=== PATIENT | female | born 1935 | race Caucasian/White ===

== ENCOUNTER 2020-09-24 22:22 | Observation (INO) | payer MEDICARE ==
[~2020-09-24] VITALS: Ht 167.6 cm; Wt 98.0 kg
--- NOTE | 2020-09-24 22:38 | PHYS DOC ---
Past Medical History Past Medical History: A-Fib, Diabetes-Type II, High Cholesterol, Hypertension Past Surgical History: No Surgical History Smoking Status: Never Smoker Alcohol Use: None Drug Use: None General Adult EDM: Problems: (1) Fall (on) (from) other stairs and steps, initial encounter HPI: HPI: 85-year-old female with a history of diabetes, blood thinner use (Eliquis 5 mg), hypertension, hyperlipidemia presents to the emergency room complaining of left shoulder pain after she fell while reaching for remote. She reports falling directly on the left shoulder, she is unsure whether she hit her head or not. She is also unsure if she had loss of consciousness or not. She was given fentanyl 100 mcg in route which she says is helping her pain right now. She denies any further arm pain besides shoulder pain, or any other pain elsewhere in her body. She denies chest pain, abdominal pain, pelvis pain, head pain, neck pain, back pain, vomiting, diarrhea, recent illness, Covid contact. Review of Systems: Review of Systems: Constitutional: Denies fever or chills. Eyes: Denies change in vision, pain. HENT: Denies congestion or sore throat. Respiratory: Denies cough or shortness of breath. Cardiovascular: Denies chest pain or edema. GI: Denies abdominal pain, nausea. : Denies change in urination, dysuria. Musculoskeletal: Denies the left shoulder pain, admits to trauma. Skin: Denies rash, skin change. Neurologic: Denies headache, focal weakness. Psychiatric: Denies depression or anxiety. All other systems reviewed as negative except for what was mentioned in the HPI. Heart Score: C/O Chest Pain: No Family History: Family History: Noncontributory Current Medications: My Orders - ASIM REED DO Procedure Category Date Status Time Shoulder 2+V Left RAD 09/24/20 Logged 22:30 [address] 09/24/20 Logged Spine Wo 22:30 Chest Ap Only RAD 09/24/20 Logged 22:30 Vital Signs Monitoring ER 09/24/20 Transmitted 22:30 Cbc W [employer] LAB 09/24/20 Logged 22:30 Basic Metabolic Panel LAB 09/24/20 Logged 22:30 Comprehensive LAB 09/24/20 Logged Metabolic Panel 22:30 Protime With Inr LAB 09/24/20 Logged 22:30 Partial LAB 09/24/20 Logged Thromboplastin Time 22:30 Ua W Microscopic LAB 09/24/20 Logged 22:30 Pelvis RAD 09/24/20 Logged 22:30 12 Lead Ekg EKG 09/24/20 Logged 22:30 End Tidal Co2 [facility] 09/24/20 In Process Monitoring 22:30 Type And Screen BBK 09/24/20 Logged 22:30 Vital Signs [facility] 09/24/20 In Process 22:30 Lactic Acid With LAB 09/24/20 Logged Reflex 22:30 Pulse Oximetry: [facility] 09/24/20 In Process Standing Order 22:30 [facility] 09/24/20 Logged 22:30 Allergies: Allergies: Allergies Coded Allergies Type Severity Reaction Last Updated Verified No Known Drug Allergies 09/24/20 No Physical Exam: PE: Constitutional: Moderate distress secondary to pain, nontoxic appearance. HENT: Head and scalp appear atraumatic, bilateral external ears normal, nose normal. Midface stable without tenderness Eyes: PERRLA, EOMI, conjunctiva normal, no discharge. Neck: Supple, no stridor. No C spinal tenderness Cardiovascular: Heart rate regular rhythm. 2+ radial pulses Lungs & Thorax: No respiratory distress, symmetrical expansion. Bilateral breath sounds clear to auscultation Abdomen: Soft, no tenderness Skin: Warm, dry. No open wound Extremities: Left shoulder deformity is noted, arm in a sling, there is no forearm tenderness there is no arm tenderness Neurologic: Alert and oriented X 3, normal motor function, normal sensory function, no focal deficits noted. GCS 15. Current Patient Data: Labs: Laboratory Tests Test 09/24/20 23:10 White Blood Count 15.8 x10^3/uL (4.0-11.0) Red Blood Count 4.93 x10^6/uL (3.50-5.40) Hemoglobin 13.7 g/dL (12.0-15.5) Hematocrit 41.2 % (36.0-47.0) Mean Corpuscular Volume 84 fL (79-100) Mean Corpuscular Hemoglobin 28 pg (25-35) Mean Corpuscular Hemoglobin Concent 33 g/dL (31-37) Red Cell Distribution Width 17.8 % (11.5-14.5) Platelet Count 258 x10^3/uL (140-400) Neutrophils (%) (Auto) 89 % (31-73) Lymphocytes (%) (Auto) 5 % (24-48) Monocytes (%) (Auto) 4 % (0-9) Eosinophils (%) (Auto) 1 % (0-3) Basophils (%) (Auto) 1 % (0-3) Neutrophils # (Auto) 14.1 x10^3/uL (1.8-7.7) Lymphocytes # (Auto) 0.8 x10^3/uL (1.0-4.8) Monocytes # (Auto) 0.6 x10^3/uL (0.0-1.1) Eosinophils # (Auto) 0.2 x10^3/uL (0.0-0.7) Basophils # (Auto) 0.1 x10^3/uL (0.0-0.2) Prothrombin Time 15.4 SEC (11.7-14.0) Prothromb Time International Ratio 1.2 (0.8-1.1) Activated Partial Thromboplast Time 34 SEC (24-38) Sodium Level 137 mmol/L (136-145) Potassium Level 4.8 mmol/L (3.5-5.1) Chloride Level 102 mmol/L (98-107) Carbon Dioxide Level 24 mmol/L (21-32) Anion Gap 11 (6-14) Blood Urea Nitrogen 32 mg/dL (7-20) Creatinine 1.6 mg/dL (0.6-1.0) Estimated GFR (Cockcroft-Gault) 30.5 BUN/Creatinine Ratio 20 (6-20) Glucose Level 189 mg/dL (70-99) Lactic Acid Level 2.5 mmol/L (0.4-2.0) Calcium Level 9.3 mg/dL (8.5-10.1) Total Bilirubin 0.3 mg/dL (0.2-1.0) Aspartate Amino Transf (AST/SGOT) 44 U/L (15-37) Alanine Aminotransferase (ALT/SGPT) 38 U/L (14-59) Alkaline Phosphatase 118 U/L (46-116) Troponin I Quantitative < 0.017 ng/mL (0.000-0.055) Total Protein 7.6 g/dL (6.4-8.2) Albumin 3.3 g/dL (3.4-5.0) Albumin/Globulin Ratio 0.8 (1.0-1.7) Vital Signs: Vital Signs Date Time Temp Pulse Resp B/P (MAP) Pulse Ox O2 Delivery O2 Flow Rate FiO2 09/25/20 01:27 22 94 Nasal Cannula 2.0 09/25/20 01:21 20 97 Nasal Cannula 2.0 09/25/20 00:16 28 99 Nasal Cannula 2.0 09/24/20 22:23 98.7 82 22 138/88 94 Nasal Cannula 3.0 98.7 EKG: EKG: Atrial fibrillation, no STEMI, low voltage Radiology/Procedures: Radiology/Procedures: STUDY: CT head and cervical spine without contrast INDICATION: Trauma. COMPARISON: None. TECHNIQUE: Axial CT imaging through the head and cervical spine without the use of intravenous contrast. Sagittal and coronal reformats were obtained. One or more of the following individualized dose reduction techniques were utilized for this examination: 1. Automated exposure control 2. Adjustment of the mA and/or kV according to patient size 3. Use of iterative reconstruction technique. FINDINGS: CT head: No acute intracranial hemorrhage. Cortical/subcortical hypoattenuation of the right occipital lobe favored a chronic infarct. No localized mass effect, midline shift or hydrocephalus. White matter findings most frequently on account of chronic microvascular ischemic change. Intracranial calcific atherosclerosis. No depressed calvarial fracture. Calvarial hyperostosis. Normally aerated paranasal sinuses and mastoid air cells. CT cervical spine: Degraded study on account of patient body habitus in conjunction with osteopenia. No displaced fracture or traumatic malalignment. Multilevel spondylosis to varying extent superimposed on exaggerated lordosis. Central canal stenosis appearing greatest at C3-C4 and C4-C5 estimated at no more than moderate. Osseous neural foraminal stenosis greatest on the right at C3-C4 and C4-C5. Degenerative changes at the craniocervical and atlantoaxial articulations. Soft tissue prominence dorsal to the dens with no more than mild stenosis. No paraspinous hematoma to indicate occult osseous injury. Prominent and somewhat heterogeneous thyroid lobe without a large nodule that would meet size criteria for dedicated follow-up. Scattered calcific atherosclerosis. No apical pneumothorax. IMPRESSION: CT head: 1. No acute intracranial abnormality by CT. Cortical/subcortical hypoattenuation involving the right occipital lobe is favored the sequela of a chronic infarct. If there is clinical concern for a recent ischemic event MRI would be more sensitive CT cervical spine: 1. Limited study due to patient body habitus and osteopenia. Taking this into consideration, no acute fracture. 2. Multilevel spondylosis greatest at C3-C4 and C4-C5. Electronically signed by: RALPH SHEPPARD MD (09/25/2020 12:14 AM) PROCEDURE: SHOULDER 2+V LEFT Exam Date: 09/24/2020 10:38 PM XR SHOULDER_LEFT 2+ VIEWS Indication: Reason: shoulder pain, deformity / Spl. Instructions: / History: . FINDINGS/ IMPRESSION: There is an acute minimally displaced fracture through the proximal humeral metaphysis without significant appreciable angulation. Moderate degenerative changes are noted. Left lung volume is low with suggestion of left basilar atelectasis and or infiltrates. Electronically signed by: Christopher Alaniz MD (09/25/2020 12:51 AM) PROCEDURE: PELVIS Exam Date: 09/24/2020 10:38 PM XR PELVIS 1-2V Indication: Reason: shoulder pain, deformity / Spl. Instructions: / History: . FINDINGS/ IMPRESSION: Bones are diffusely osteopenic which limits evaluation. Imaging technique further limits evaluation. Moderate degenerative changes are seen in the hips bilaterally. Degenerative changes are noted in the lower lumbar spine and SI joints and pubic symphysis. There is a small subcapital linear lucency along the medial aspect of the left femoral neck which could be secondary to an overhanging osteophyte, though a nondisplaced acute fracture cannot be excluded. If the patient has symptoms in the left hip, consider further evaluation with CT or MRI. Other visualized osseous structures appear intact. Electronically signed by: Christopher Alaniz MD (09/25/2020 12:54 AM) PROCEDURE: CHEST AP ONLY Exam Date: 09/24/2020 10:38 PM XR CHEST 1V Indication: Reason: shoulder pain, deformity / Spl. Instructions: / History: . FINDINGS/ IMPRESSION: The cardiac silhouette is enlarged with mild congestion. Prominent interstitial markings bilaterally are nonspecific. Left basilar atelectasis and or infiltrates are noted. No pleural effusion or pneumothorax. Left proximal humerus fracture is noted. Electronically signed by: Christopher Alaniz MD (09/25/2020 12:51 AM) Course & Med Decision Making: Course & Med Decision Making Patient with an acute left proximal humerus fracture, she was placed in a sling. Pain was reasonably controlled emergency department. Daughter who is at the bedside, will feel more comfortable patient with observation given that she use a walker at home and there is concerns about mobility with the sling and fracture. We will admit her for PT in the morning along with pain control. The patient and her mother were concerned about Eliquis use, as the last time the p atient fell her Eliquis was withheld and she had a stroke. At this time there is no further injury that was seen on exam and the patient's head CT is normal. We will resume her Eliquis here with the family in agreement with the plan. Dr Torres to admit Departure Departure Impression: Primary Impression: Left humeral fracture Additional Impression: Fall (on) (from) other stairs and steps, initial encounter Disposition: ADMITTED INPATIENT (Dr. Torres) Condition: STABLE ASIM REED DO Sep 24, 2020 22:38
[2020-09-24 23:40] LABS: BASO # 0.1 x10^3/uL (0.0-0.2); BASO % 1 % (0-3); EOS # 0.2 x10^3/uL (0.0-0.7); EOS % 1 % (0-3); HEMATOCRIT 41.2 % (36.0-47.0); HEMOGLOBIN 13.7 g/dL (12.0-15.5); LYMPH # 0.8 x10^3/uL (1.0-4.8); LYMPH % 5 % (24-48); MEAN CORPUSCULAR HEMOGLOBIN 28 pg (25-35); MEAN CORPUSCULAR HGB CONC 33 g/dL (31-37); MEAN CORPUSCULAR VOLUME 84 fL (79-100); MONO # 0.6 x10^3/uL (0.0-1.1); MONO % 4 % (0-9); NEUT # 14.1 x10^3/uL (1.8-7.7); NEUT % 89 % (31-73); PLATELET COUNT 258 x10^3/uL (140-400); RED BLOOD COUNT 4.93 x10^6/uL (3.50-5.40); RED CELL DISTRIBUTION WIDTH 17.8 % (11.5-14.5); WHITE BLOOD COUNT 15.8 x10^3/uL (4.0-11.0)
[2020-09-24 23:47] LABS: CALCIUM 9.3 mg/dL (8.5-10.1); CREATININE 1.6 mg/dL (0.6-1.0); GFR 30.5; POTASSIUM 4.8 mmol/L (3.5-5.1)
[2020-09-24 23:52] LABS: ALBUMIN 3.3 g/dL (3.4-5.0); ALBUMIN/GLOBULIN RATIO 0.8 (1.0-1.7); TOTAL BILIRUBIN 0.3 mg/dL (0.2-1.0); TOTAL PROTEIN 7.6 g/dL (6.4-8.2)
[2020-09-24 23:53] LABS: PROTHROMBIN TIME PATIENT 15.4 SEC (11.7-14.0)
[2020-09-25] MEDS ORDERED: MORPHINE SULFATE 4 MG/ML INJ. IVP ONE
--- NOTE | 2020-09-25 00:17 | RAD ---
STUDY: CT head and cervical spine without contrast INDICATION: Trauma. COMPARISON: None. TECHNIQUE: Axial CT imaging through the head and cervical spine without the use of intravenous contra st. Sagittal and coronal reformats were obtained. One or more of the following individualized dose reduction techniques were utilized for this examinat ion: 1. Automated exposure control 2. Adjustment of the mA and/or kV according to patient size 3. Use of iterative reconstruction technique. FINDINGS: CT head: No acute intracranial hemorrhage. Cortical/subcortical hypoattenuation of the right occipital lobe fa vored a chronic infarct. No localized mass effect, midline shift or hydrocephalus. White matter findings most frequently on account of chronic microvascular ischemic change. Intracrani al calcific atherosclerosis. No depressed calvarial fracture. Calvarial hyperostosis. Normally aerated paranasal sinuses and masto id air cells. CT cervical spine: Degraded study on account of patient body habitus in conjunction with osteopenia. No displaced fracture or traumatic malalignment. Multilevel spondylosis to varying extent superimpose d on exaggerated lordosis. Central canal stenosis appearing greatest at C3-C4 and C4-C5 estimated at no more than moderate. Osseous neural foraminal stenosis greatest on the right at C3-C4 and C4-C5. De generative changes at the craniocervical and atlantoaxial articulations. Soft tissue prominence dorsa l to the dens with no more than mild stenosis. No paraspinous hematoma to indicate occult osseous injury. Prominent and somewhat heterogeneous thyro id lobe without a large nodule that would meet size criteria for dedicated follow-up. Scattered calci fic atherosclerosis. No apical pneumothorax. IMPRESSION: CT head: 1. No acute intracranial abnormality by CT. Cortical/subcortical hypoattenuation involving the right occipital lobe is favored the sequela of a chronic infarct. If there is clinical concern for a recen t ischemic event MRI would be more sensitive CT cervical spine: 1. Limited study due to patient body habitus and osteopenia. Taking this into consideration, no acut e fracture. 2. Multilevel spondylosis greatest at C3-C4 and C4-C5. Electronically signed by: RALPH SHEPPARD MD (09/25/2020 12:14 AM) [facility]
--- NOTE | 2020-09-25 00:53 | RAD ---
Exam Date: 09/24/2020 10:38 PM XR CHEST 1V Indication: Reason: shoulder pain, deformity / Spl. Instructions: / History: . FINDINGS/ IMPRESSION: The cardiac silhouette is enlarged with mild congestion. Prominent interstitial markings bilaterally are nonspecific. Left basilar atelectasis and or infiltrates are noted. No pleural effusion or pne umothorax. Left proximal humerus fracture is noted. Electronically signed by: Christopher Alaniz MD (09/25/2020 12:51 AM) [facility]
--- NOTE | 2020-09-25 00:54 | RAD ---
Exam Date: 09/24/2020 10:38 PM XR SHOULDER_LEFT 2+ VIEWS Indication: Reason: shoulder pain, deformity / Spl. Instructions: / History: . FINDINGS/ IMPRESSION: There is an acute minimally displaced fracture through the proximal humeral metaphysis without signif icant appreciable angulation. Moderate degenerative changes are noted. Left lung volume is low with suggestion of left basilar atelectasis and or infiltrates. Electronically signed by: Christopher Alaniz MD (09/25/2020 12:51 AM) [facility]
--- NOTE | 2020-09-25 00:57 | RAD ---
Exam Date: 09/24/2020 10:38 PM XR PELVIS 1-2V Indication: Reason: shoulder pain, deformity / Spl. Instructions: / History: . FINDINGS/ IMPRESSION: Bones are diffusely osteopenic which limits evaluation. Imaging technique further limits evaluation. Moderate degenerative changes are seen in the hips bilaterally. Degenerative changes are noted in the lower lumbar spine and SI joints and pubic symphysis. There is a small subcapital linear lucency along the medial aspect of the left femoral neck which could be secondary to an overhanging osteophy te, though a nondisplaced acute fracture cannot be excluded. If the patient has symptoms in the left hip, consider further evaluation with CT or MRI. Other visualized osseous structures appear intact. Electronically signed by: Christopher Alaniz MD (09/25/2020 12:54 AM) [facility]
[2020-09-25] MEDS ORDERED: ONDANSETRON PF 4 MG/2 ML VIAL. IVP PRN (01:00)
[2020-09-25] MEDS ORDERED: ACETAMINOPHEN 325 MG TABLET. PO PRN ×2 (01:00→11:30)
[2020-09-25] MEDS: ATORVASTATIN CALCIUM 20 MG TABLET PO SCH ×2 (01:18→21:11)
[2020-09-25] MEDS: APIXABAN 5 MG TABLET. PO SCH ×3 (01:19→21:11)
[2020-09-25] MEDS: MORPHINE SULFATE 2 MG/ML INJ. IVP PRN ×4 (01:27→13:24)
[2020-09-25 03:10] VITALS: BP 140/82
--- NOTE | 2020-09-25 03:40 | EKG ---
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
[2020-09-25 04:34] LABS: % BANDS 5 % (0-9); % BASOS 1 % (0-3); % LYMPHS 6 % (24-48); % MONOS 3 % (0-10); % SEGS 85 % (35-66); ANISOCYTOSIS SLIGHT; PLT ESTIMATE ADEQUATE (ADEQUATE)
[2020-09-25 07:00] VITALS: BP 148/92
[2020-09-25] MEDS ORDERED: PIP/TAZO PER PHARMACY MC PRN (08:15)
--- NOTE | 2020-09-25 09:46 | NUR ---
RN notified by daughter of patient that home medications were taken this morning.
[2020-09-25] MEDS: PIPERACILLIN/TAZOBACTAM 2.25 GM in IV NORMAL SALINE 50ML 50 ML IV SCH ×4 (10:03→23:47)
--- NOTE | 2020-09-25 10:42 | PDOC1 ---
History and Physical Date of Admission Date of Admission DATE: 09/25/20 TIME: 10:38 Identification/Chief Complaint Chief Complaint c/o fall while reaching for remote.reports falling directly on the left shoulder, History of Present Illness History of Present Illness 85-year-old female with a history of diabetes, blood thinner use (Eliquis 5 mg), hypertension, hyperlipidemia presents to the emergency room complaining of left shoulder pain after she fell while reaching for remote. reports falling directly on the left shoulder, she is unsure whether she hit her head or not./ unsure if she had loss of consciousness or not. She was given fentanyl 100 mcg in route which she says is helping her pain // denies chest pain, abdominal pain, pelvis pain, head pain, neck pain, back pain, vomiting, diarrhea, has had a mild cough Left proximal humerus fracture is noted. x ray small subcapital linear lucency along the medial aspect of the left femoral neck which could be secondary to an overhanging osteophyte, though a nondisplaced acu te fracture cannot be excluded LACTIC ACIDOSIS noted, will trend // Acute hypoxic resp failure hx diabetes, dyslipidemia, hypertension, hx CHF on Eliquis for AFib. cr 1.6 CKD? no old labs for review at admit /small subcapital linear lucency along the medial aspect of the left femoral neck which could be secondary to an overhanging osteophyte, though a nondisplaced acute fracture cannot be excluded plan == ortho consult / iv zosyn, zithromax BLOOD CULTURES / echo Consult cardiology cont Eliquis for AFib. consult pulmonary /o2 support / Monitor renal function. bedrest procalcitonin pending HTN- on Losartan and Bumex Past Medical History Past Medical History Past Medical History Past Medical History: A-Fib, Diabetes-Type II, High Cholesterol, Hypertension Past Surgical History: No Surgical History Smoking Status: Never Smoker Alcohol Use: None Drug Use: None fhx obesity, htn Musculoskeletal: Osteoarthritis Family History Family History: Hypertension Social History Smoke: No ALCOHOL: none Drugs: None, Other ( smoked) Current Medications Current Medications Current Medications Morphine Sulfate (Morphine Sulfate) 4 mg 1X ONCE IVP Last administered on 09/25/20at 00:16; Start 09/25/20 at 00:00; Stop 09/25/20 at 00:01; Status DC Ondansetron HCl (Zofran) 4 mg PRN Q8HRS PRN IVP NAUSEA/VOMITING; Start 09/25/20 at 01:00; Stop 09/26/20 at 00:59 Morphine Sulfate (Morphine Sulfate) 2 mg PRN Q2HR PRN IVP PAIN Last administered on 09/25/20at 10:02; Start 09/25/20 at 01:00; Stop 09/26/20 at 00:59 Acetaminophen (Tylenol) 650 mg PRN Q4HRS PRN PO FEVER > 100.3'F; Start 09/25/20 at 01:00; Stop 09/26/20 at 00:59 Apixaban (Eliquis) 5 mg BID PO Last administered on 09/25/20at 01:19; Start 09/25/20 at 01:00 Atorvastatin Calcium (Lipitor) 20 mg QHS PO Last administered on 09/25/20at 01:18; Start 09/25/20 at 01:00 Piperacillin Sod/ Tazobactam Sod (Zosyn Per Pharmacy) 1 each PRN DAILY PRN MC SEE COMMENTS; Start 09/25/20 at 08:15 Piperacillin Sod/ Tazobactam Sod 2.25 gm/Sodium Chloride 50 ml @ 100 mls/hr Q6HRS IV Last administered on 09/25/20at 10:03; Start 09/25/20 at 09:00 Allergies Allergies: Coded Allergies: No Known Drug Allergies (Unverified , 09/24/20) ROS Review of System : Constitutional: Denies fever or chills. Eyes: Denies change in vision, pain. HENT: Denies congestion or sore throat. Respiratory: Denies cough or shortness of breath. Cardiovascular: Denies chest pain or edema. GI: Denies abdominal pain, nausea. : Denies change in urination, dysuria. Musculoskeletal: Denies the left shoulder pain, admits to trauma. Skin: Denies rash, skin change. Neurologic: Denies headache, focal weakness. Psychiatric: Denies depression or anxiety. 14 pt systems reviewed as negative except for what was in the HPI. Respiratory: YES: Cough, Shortness of breath, SOB with excertion Cardiovascular: No Chest Pain, No Palpitations, No Orthopnea, No Paroxysmal Noc. Dyspnea, No Edema, No Lt Headedness, No Other Gastrointestinal: No Nausea, No Vomiting, No Abdominal Pain, No Diarrhea, No Constipation, No Melena, No Hematochezia, No Other Musculoskeletal: Yes Gait Disturbance, Yes Joint Pain, Yes Joint Stiffness Neurological: Yes Gait Disturbance Physical Exam Physical Exam Constitutional: Moderate distress secondary to pain, nontoxic appearance. HENT: Head and scalp appear atraumatic, bilateral external ears normal, nose normal. Midface stable without tenderness Eyes: PERRLA, EOMI, conjunctiva normal, no discharge. Neck: Supple, no stridor. No C spinal tenderness Cardiovascular: Heart rate regular rhythm. 2+ radial pulses Lungs & Thorax: No respiratory distress, symmetrical expansion. Bilateral breath sounds clear to auscultation Abdomen: Soft, no tenderness Skin: Warm, dry. No open wound Extremities: Left shoulder deformity is noted, arm in a sling, there is no forearm tenderness there is no arm tenderness Neurologic: Alert and oriented X 3, normal motor function, normal sensory function, no focal deficits noted. GCS 15. Breasts: Not examined Abdomen: Normal bowel sounds, Soft, No tenderness Rectal Exam: not examined Extremities: No cyanosis Neuro: Normal speech, Cranial nerves 3-12 NL Psych/Mental Status: Mental status NL, Mood NL Vitals Vitals Vital Signs Date Time Temp Pulse Resp B/P (MAP) Pulse Ox O2 Delivery O2 Flow Rate FiO2 09/25/20 10:02 95 Nasal Cannula 2.0 09/25/20 07:00 98.1 100 18 148/92 (110) 98.1 Labs Labs Laboratory Tests Test 09/24/20 23:10 09/25/20 03:10 White Blood Count 15.8 x10^3/uL (4.0-11.0) Red Blood Count 4.93 x10^6/uL (3.50-5.40) Hemoglobin 13.7 g/dL (12.0-15.5) Hematocrit 41.2 % (36.0-47.0) Mean Corpuscular Volume 84 fL (79-100) Mean Corpuscular Hemoglobin 28 pg (25-35) Mean Corpuscular Hemoglobin Concent 33 g/dL (31-37) Red Cell Distribution Width 17.8 % (11.5-14.5) Platelet Count 258 x10^3/uL (140-400) Neutrophils (%) (Auto) 89 % (31-73) Lymphocytes (%) (Auto) 5 % (24-48) Monocytes (%) (Auto) 4 % (0-9) Eosinophils (%) (Auto) 1 % (0-3) Basophils (%) (Auto) 1 % (0-3) Neutrophils # (Auto) 14.1 x10^3/uL (1.8-7.7) Lymphocytes # (Auto) 0.8 x10^3/uL (1.0-4.8) Monocytes # (Auto) 0.6 x10^3/uL (0.0-1.1) Eosinophils # (Auto) 0.2 x10^3/uL (0.0-0.7) Basophils # (Auto) 0.1 x10^3/uL (0.0-0.2) Segmented Neutrophils % 85 % (35-66) Band Neutrophils % 5 % (0-9) Lymphocytes % 6 % (24-48) Monocytes % 3 % (0-10) Basophils % 1 % (0-3) Platelet Estimate Adequate (ADEQUATE) Anisocytosis Slight Prothrombin Time 15.4 SEC (11.7-14.0) Prothromb Time International Ratio 1.2 (0.8-1.1) Activated Partial Thromboplast Time 34 SEC (24-38) Sodium Level 137 mmol/L (136-145) Potassium Level 4.8 mmol/L (3.5-5.1) Chloride Level 102 mmol/L (98-107) Carbon Dioxide Level 24 mmol/L (21-32) Anion Gap 11 (6-14) Blood Urea Nitrogen 32 mg/dL (7-20) Creatinine 1.6 mg/dL (0.6-1.0) Estimated GFR (Cockcroft-Gault) 30.5 BUN/Creatinine Ratio 20 (6-20) Glucose Level 189 mg/dL (70-99) Lactic Acid Level 2.5 mmol/L (0.4-2.0) 2.5 mmol/L (0.4-2.0) Calcium Level 9.3 mg/dL (8.5-10.1) Total Bilirubin 0.3 mg/dL (0.2-1.0) Aspartate Amino Transf (AST/SGOT) 44 U/L (15-37) Alanine Aminotransferase (ALT/SGPT) 38 U/L (14-59) Alkaline Phosphatase 118 U/L (46-116) Troponin I Quantitative < 0.017 ng/mL (0.000-0.055) Total Protein 7.6 g/dL (6.4-8.2) Albumin 3.3 g/dL (3.4-5.0) Albumin/Globulin Ratio 0.8 (1.0-1.7) Laboratory Tests Test 09/24/20 23:10 09/25/20 03:10 White Blood Count 15.8 x10^3/uL (4.0-11.0) Red Blood Count 4.93 x10^6/uL (3.50-5.40) Hemoglobin 13.7 g/dL (12.0-15.5) Hematocrit 41.2 % (36.0-47.0) Mean Corpuscular Volume 84 fL (79-100) Mean Corpuscular Hemoglobin 28 pg (25-35) Mean Corpuscular Hemoglobin Concent 33 g/dL (31-37) Red Cell Distribution Width 17.8 % (11.5-14.5) Platelet Count 258 x10^3/uL (140-400) Neutrophils (%) (Auto) 89 % (31-73) Lymphocytes (%) (Auto) 5 % (24-48) Monocytes (%) (Auto) 4 % (0-9) Eosinophils (%) (Auto) 1 % (0-3) Basophils (%) (Auto) 1 % (0-3) Neutrophils # (Auto) 14.1 x10^3/uL (1.8-7.7) Lymphocytes # (Auto) 0.8 x10^3/uL (1.0-4.8) Monocytes # (Auto) 0.6 x10^3/uL (0.0-1.1) Eosinophils # (Auto) 0.2 x10^3/uL (0.0-0.7) Basophils # (Auto) 0.1 x10^3/uL (0.0-0.2) Segmented Neutrophils % 85 % (35-66) Band Neutrophils % 5 % (0-9) Lymphocytes % 6 % (24-48) Monocytes % 3 % (0-10) Basophils % 1 % (0-3) Platelet Estimate Adequate (ADEQUATE) Anisocytosis Slight Prothrombin Time 15.4 SEC (11.7-14.0) Prothromb Time International Ratio 1.2 (0.8-1.1) Activated Partial Thromboplast Time 34 SEC (24-38) Sodium Level 137 mmol/L (136-145) Potassium Level 4.8 mmol/L (3.5-5.1) Chloride Level 102 mmol/L (98-107) Carbon Dioxide Level 24 mmol/L (21-32) Anion Gap 11 (6-14) Blood Urea Nitrogen 32 mg/dL (7-20) Creatinine 1.6 mg/dL (0.6-1.0) Estimated GFR (Cockcroft-Gault) 30.5 BUN/Creatinine Ratio 20 (6-20) Glucose Level 189 mg/dL (70-99) Lactic Acid Level 2.5 mmol/L (0.4-2.0) 2.5 mmol/L (0.4-2.0) Calcium Level 9.3 mg/dL (8.5-10.1) Total Bilirubin 0.3 mg/dL (0.2-1.0) Aspartate Amino Transf (AST/SGOT) 44 U/L (15-37) Alanine Aminotransferase (ALT/SGPT) 38 U/L (14-59) Alkaline Phosphatase 118 U/L (46-116) Troponin I Quantitative < 0.017 ng/mL (0.000-0.055) Total Protein 7.6 g/dL (6.4-8.2) Albumin 3.3 g/dL (3.4-5.0) Albumin/Globulin Ratio 0.8 (1.0-1.7) Images Images PATIENT: LORENA DELUNA ACCOUNT: [id number] : 1935 LOCATION: ER AGE: 85 SEX: F EXAM STATUS: REG ER ORD. PHYSICIAN: ASIM REED DO REASON: shoulder pain, deformity PROCEDURE: SHOULDER 2+V LEFT Exam Date: 09/24/2020 10:38 PM XR SHOULDER_LEFT 2+ VIEWS Indication: Reason: shoulder pain, deformity / Spl. Instructions: / History: . FINDINGS/ IMPRESSION: There is an acute minimally displaced fracture through the proximal humeral metaphysis without significant appreciable angulation. Moderate degenerative changes are noted. Left lung volume is low with suggestion of left basilar atelectasis and or infiltrates. Electronically signed by: Tammy Alaniz MD (09/25/2020 12:51 AM) [facility] DI[facility] and SIGNED BY: TAMMY ALANIZ MD DATE: 09/25/20 [id number] 0 Exam Date: 09/24/2020 10:38 PM XR PELVIS 1-2V Indication: Reason: shoulder pain, deformity / Spl. Instructions: / History: . FINDINGS/ IMPRESSION: Bones are diffusely osteopenic which limits evaluation. Imaging technique further limits evaluation. Moderate degenerative changes are seen in the hips bilaterally. Degenerative changes are noted in the lower lumbar spine and SI joints and pubic symphysis. There is a small subcapital linear lucency along the medial aspect of the left femoral neck which could be secondary to an overhanging osteophyte, though a nondisplaced acute fracture cannot be excluded. If the patient has symptoms in the left hip, consider further evaluation with CT or MRI. Other visualized osseous structures appear intact. Electronically signed by: Tammy Alaniz MD (09/25/2020 12:54 AM) [facility] DI[facility]ATED and SIGNED BY: TAMMY ALANIZ MD DATE: 09/25/20 [id number] VTE Prophylaxis Ordered VTE Prophylaxis Devices: No VTE Pharmacological Prophylaxi: Yes Assessment/Plan Assessment/Plan IMPRESSION: Left humeral fracture // acute minimally displaced fracture through the proximal humeral metaphysis without significant appreciable angulation. Moderate degenerative changes are noted. MORBID OBESITY Left lung c/w suggestion of left basilar atelectasis and or infiltrates. Fall LACTIC ACIDOSIS POSSIBLE early sepsis Acute hypoxic resp failure diabetes, dyslipidemia, hypertension on Losartan and Bumex CHF Mild reactive leukocytosis. Eliquis for AFib. CKD? no old labs for review at admit small subcapital linear lucency along the medial aspect of the left femoral neck which could be secondary to an overhanging osteophyte, though a n ondisplaced acute fracture cannot be excluded plan ortho consult iv zosyn, zithromax, taper soon if possible BLOOD CULTURES, urine culture Consult cardiology Eliquis for AFib. consult pulmonary o2 support Monitor renal function. bedrest home meds procalcitonin pending trend lactic acid PT/OT DNR CODE STATUS AM CBC, BMP. UA, URINE CULTURE cxr pa/ lat in am D/W DAUGHTER D/W RN Justifications for Admission Other Justification NICOLLE SEAY MD Sep 25, 2020 10:42
[2020-09-25] MEDS ORDERED: AZITHRMYCN 500MG IVPB FOR OMNI 250 ML IV SCH (10:45)
--- NOTE | 2020-09-25 10:56 | CONS ---
DATE OF CONSULTATION: 09/25/2020 PULMONARY CONSULTATION ATTENDING PHYSICIAN: Marcio Torres MD. REASON FOR CONSULTATION: Abnormal chest x-ray. HISTORY OF PRESENT ILLNESS: The patient is an 85-year-old female who has a history of diabetes. She is not a smoker. She was brought into the hospital with left shoulder pain after she fell. She did not lose any consciousness. She is noted to have a fracture of the left humerus. A chest x-ray was performed, which shows minimal atelectasis in the left lower base. I have been asked to see her for further evaluation. The patient states she has a mild dry cough. The daughter says no fever, no chills. The cough is nonproductive and is not associated with any purulent sputum. She is a nonsmoker. She is not on home oxygen. Her white cell count was mildly elevated at 15.8. PAST MEDICAL HISTORY: Significant for underlying obesity, history of type 2 diabetes, dyslipidemia, hypertension, atrial fibrillation, on Eliquis. PAST SURGICAL HISTORY: No recent surgery. ALLERGIES: None. MEDICATIONS: Reviewed as listed in the MRAD including Zosyn. REVIEW OF SYSTEMS: A 12-point system obtained. Pertinent positives discussed in my present illness, otherwise noncontributory. All systems that were negative were reviewed as well. FAMILY HISTORY: Noncontributory to lungs. SOCIAL HISTORY: Nonsmoker. PHYSICAL EXAMINATION: VITAL SIGNS: Reviewed. She is afebrile, blood pressure stable, pulse ox 95% on 2 liters. She has shoulder support on the left. LUNGS: With diminished breath sounds. CARDIOVASCULAR: With a regular rate. ABDOMEN: Soft, obese. EXTREMITIES: With trace pitting edema. LABORATORY DATA: Reviewed. Sodium 137, BUN 32, creatinine 1.6. White cell count 15.8. IMPRESSION: 1. Abnormal chest x-ray, likely left basilar atelectasis. She has no fever. The white cell count is probably reactive secondary to her fracture. At this time, she is currently already on Zosyn. She could be switched to oral Augmentin and could be discharged in the next 24 hours. 2. Status post fall with left humeral fracture, nonsurgical versus surgery. 3. Mild reactive leukocytosis. 4. No significant tobacco history. 5. Mild acute kidney injury. RECOMMENDATIONS: 1. From a pulmonary standpoint, she could be discharged in the next 24 hours on oral Augmentin. 2. Wean her off oxygen. 3. Incentive spirometry. 4. Eliquis for AFib. 5. Monitor renal function. 6. Discussed with RN and the patient's daughter. We will be available for any further recommendations. From a pulmonary standpoint, she could be discharged in the next 24 hours. We will see her p.r.n. VENKATESH/MARLEN DR: Fernando TID: [id number]
[2020-09-25] MEDS ORDERED: HYDR-2761 PO (10:59)
[2020-09-25] MEDS ORDERED: OMEP20CA16 PO (10:59)
[2020-09-25] MEDS ORDERED: APIX5TAB PO (10:59)
[2020-09-25] MEDS ORDERED: DILT180C64 PO (10:59)
[2020-09-25] MEDS ORDERED: INSU100I27 SQ (10:59)
[2020-09-25] MEDS ORDERED: BUME0.5T2 PO (10:59)
[2020-09-25] MEDS ORDERED: METF500T16 PO (10:59)
[2020-09-25] MEDS ORDERED: ATOR20TA58 PO (10:59)
[2020-09-25] MEDS ORDERED: LOSA25TA PO (10:59)
[2020-09-25] MEDS ORDERED: GLIP5TAB22 PO (10:59)
[2020-09-25 11:00] VITALS: BP 108/65
[2020-09-25] MEDS ORDERED: 0.9 % SODIUM CHLORIDE 10 ML DISP.SYRIN. IV PRN (11:30)
[2020-09-25] MEDS ORDERED: ALBUTEROL SULFATE 2.5 MG/3 ML NEBU. NEB PRN (11:30)
[2020-09-25] MEDS ORDERED: DOCUSATE SODIUM 100 MG CAPSULE. PO PRN (11:30)
[2020-09-25] MEDS ORDERED: guaiFENesin ORAL 200 MG/10 ML LIQUID. PO PRN (11:30)
[2020-09-25] MEDS ORDERED: ONDANSETRON PF 4 MG/2 ML VIAL. IV PRN (11:30)
[2020-09-25] MEDS ORDERED: MAG HYDROX/ALUMINUM HYD/SIMETH 30 ML ORAL.SUSP PO PRN (11:30)
--- NOTE | 2020-09-25 11:50 | PDOC2 ---
Consult: September 25, 2020 Chief complaint: Left shoulder fracture HISTORY: Patient seen evaluated today in room 404 secondary to injury that occurred to her left shoulder. She had a fall injuring her shoulder. She was subsequently seen in the emergency room where x-rays revealed a minimally displaced proximal humerus fracture. I did review these x-rays. This appears to be a three-part fracture with minimal displacement. She denies any numbness or tingling. She has pain with any attempted movement. Patient has significant physical debility and uses her arms significantly to help rise from a seated position. She is right-hand dominant. PAST MEDICAL/SURGICAL/FAMILY HISTORY/SOCIAL HISTORY/ AND ROS were reviewed on intake to include multiple system review. Copied to EHR. EXAM: -------- Well-nourished well-developed patient General: No acute distress. HEENT: Normocephalic. Respiratory: Respirations are non-labored. Cardiovascular: No edema. Abdomen: soft Neurologic: Alert. Psychiatric: Cooperative. Left shoulder reveals the skin to be intact neurovascular status is intact grossly. No visual atrophy. No significant scapula protraction. Active range of motion is poor with mild pain throughout range of motion arc. Passive range of motion is full. Rotator cuff strength is 3 out of 5. Positive Neer and Barker. No a.c. joint tenderness. Equivocal speed's and Yergason's. ASSESSMENT & PLAN: Left shoulder 3 part proximal humerus fracture closed minimally displaced I discussed with the patient treatment options as well as diagnostics. We discussed options both surgical and nonsurgical (i.e. medication, injection, therapy, lifestyle modification, assistive devices and other modalities). We also discussed pros and cons of each. I would recommend nonoperative treatment. With the alignment of her fracture I am not sure that any surgical treatment offers any further benefit. I discussed this today with the patient as well as her daughter with whom she lives and is her durable power. Continue immobilization. No use left upper extremity okay for elbow and wrist range of motion. I will see her in the office in 1 week for repeat x-rays to ensure alignment is staying maintained. Patient may need nursing home due to her debility. MARY HARRIS DO Sep 25, 2020 11:50 am
[2020-09-25] MEDS: AZITHROMYCIN 500 MG in IV NORMAL SALINE 250ML 250 ML IV SCH (11:56)
[2020-09-25] MEDS: glipiZIDE ER 2.5 MG TAB.ER.24 PO SCH (12:00)
[2020-09-25] MEDS: IV NORMAL SALINE 1000ML BAG 1,000 ML IV SCH ×2 (12:00→21:21)
[2020-09-25] MEDS: LOSARTAN POTASSIUM 25 MG TABLET. PO SCH (12:00)
--- NOTE | 2020-09-25 12:20 | PDOC2 ---
CONSULT Date of Consult Date of Consult DATE: 09/25/20 TIME: 12:09 Reason for Consult Reason for Consult: GALI Source Source: Chart review, Patient History of Present Illness Reason for Visit: 85-year-old female with a history of diabetes, blood thinner use (Eliquis 5 mg), hypertension, hyperlipidemia presents to the emergency room complaining of left shoulder pain after she fell while reaching for remote. She reports falling directly on the left shoulder, she is unsure whether she hit her head or not. She is also unsure if she had loss of consciousness or not. She denies any further arm pain besides shoulder pain, or any other pain elsewhere in her body. She denies chest pain, abdominal pain, pelvis pain, head pain, neck pain, back pain, vomiting, diarrhea, recent illness, Covid contact. Her PCP is Dr. Tiana Snyder, also follows with Endo. Per daughter she has baseline CKD - per PCP- but not sure if stage 2 or 3, never referred to Nephrology . Has been on ARB and and Bumex for long time. No new med changes. No use of NSAID's . No urinary complaints, No UTI's .No Hx of kidney stpnes Xray with acute left proximal humerus fracture Past Medical History Past Medical History A-Fib, Diabetes-Type II, High Cholesterol, Hypertension Past Surgical History Past Surgical History No Surgical History Family History Family History Hypertension Family History: Hypertension Social History Social History Smoke: No ALCOHOL: none Drugs: None No ALCOHOL: none Drugs: None Current Medications Current Medications Current Medications Morphine Sulfate (Morphine Sulfate) 4 mg 1X ONCE IVP Last administered on 09/25/20at 00:16; Start 09/25/20 at 00:00; Stop 09/25/20 at 00:01; Status DC Ondansetron HCl (Zofran) 4 mg PRN Q8HRS PRN IVP NAUSEA/VOMITING; Start 09/25/20 at 01:00; Stop 09/25/20 at 11:37; Status DC Morphine Sulfate (Morphine Sulfate) 2 mg PRN Q2HR PRN IVP PAIN Last administered on 09/25/20at 10:02; Start 09/25/20 at 01:00; Stop 09/26/20 at 00:59 Acetaminophen (Tylenol) 650 mg PRN Q4HRS PRN PO FEVER > 100.3'F; Start 09/25/20 at 01:00; Stop 09/25/20 at 11:37; Status DC Apixaban (Eliquis) 5 mg BID PO Last administered on 09/25/20at 01:19; Start 09/25/20 at 01:00 Atorvastatin Calcium (Lipitor) 20 mg QHS PO Last administered on 09/25/20at 01:18; Start 09/25/20 at 01:00 Piperacillin Sod/ Tazobactam Sod (Zosyn Per Pharmacy) 1 each PRN DAILY PRN MC SEE COMMENTS; Start 09/25/20 at 08:15 Piperacillin Sod/ Tazobactam Sod 2.25 gm/Sodium Chloride 50 ml @ 100 mls/hr Q6HRS IV Last administered on 09/25/20at 10:03; Start 09/25/20 at 09:00 Azithromycin 250 ml @ 250 mls/hr DAILY07 IV ; Start 09/25/20 at 10:45; Status UNV Azithromycin 500 mg/Sodium Chloride 250 ml @ 250 mls/hr Q24H IV Last administered on 09/25/20at 11:56; Start 09/25/20 at 11:00 Apixaban (Eliquis) 5 mg BID PO ; Start 09/25/20 at 21:00; Status UNV Atorvastatin Calcium (Lipitor) 20 mg DAILY PO ; Start 09/26/20 at 09:00; Status UNV Diltiazem HCl (Cardizem 24hr Cd) 360 mg DAILY PO ; Start 09/25/20 at 12:00 Acetaminophen/ Hydrocodone Bitart (Lortab 5/325) 1 tab PRN Q6HRS PRN PO PAIN; Start 09/25/20 at 11:30 Losartan Potassium (Cozaar) 25 mg DAILY PO ; Start 09/25/20 at 12:00 Bumetanide (Bumex) 0.5 mg BID94 PO ; Start 09/25/20 at 16:00 Glipizide (Glucotrol Er) 5 mg DAILY08 PO ; Start 09/25/20 at 12:00 Insulin Glargine (Lantus Syringe) 18 unit QHS SQ ; Start 09/25/20 at 21:00 Pantoprazole Sodium (Protonix) 40 mg QODAY@0730 PO ; Start 09/26/20 at 07:30 Sodium Chloride (Normal Saline Flush) 3 ml QSHIFT PRN IV AFTER MEDS AND BLOOD DRAWS; Start 09/25/20 at 11:30 Sodium Chloride 1,000 ml @ 50 mls/hr Q20H IV ; Start 09/25/20 at 12:00 Ondansetron HCl (Zofran) 4 mg PRN Q4HRS PRN IV NAUSEA/VOMITING; Start 09/25/20 at 11:30 Acetaminophen (Tylenol) 650 mg PRN Q4HRS PRN PO TEMP OVER 100.4F OR MILD PAIN; Start 09/25/20 at 11:30 Al Hydroxide/Mg Hydroxide (Mylanta Plus Xs) 30 ml PRN DAILY PRN PO HEARTBURN / GAS; Start 09/25/20 at 11:30 Docusate Sodium (Colace) 100 mg PRN BID PRN PO HARD STOOLS; Start 09/25/20 at 11:30 Albuterol Sulfate (Ventolin Neb Soln) 2.5 mg PRN Q4HRS PRN NEB SHORTNESS OF BREATH; Start 09/25/20 at 11:30 Guaifenesin (Robitussin) 200 mg PRN Q4HRS PRN PO COUGH; Start 09/25/20 at 11:30 Active Scripts Active Reported Hydrocodone-Apap 5-325 (Hydrocodone Bit/Acetaminophen) 1 Tab Tablet 1 Tab PO PRN Q6HRS PRN Bumetanide 0.5 Mg Tablet 0.5 Mg PO BID Omeprazole 20 Mg Capsule.dr 20 Mg PO QODAY Levemir Flextouch (Insulin Detemir) 100 Unit/1 Ml Insuln.pen 18 Units SQ HS Cozaar (Losartan Potassium) 25 Mg Tablet 25 Mg PO DAILY Cartia Xt (Diltiazem Hcl) 180 Mg Cap.er.24h 360 Mg PO DAILY Glipizide Er (Glipizide) 5 Mg Tab.er.24 5 Mg PO BIDAC Eliquis (Apixaban) 5 Mg Tablet 5 Mg PO BID Atorvastatin Calcium 20 Mg Tablet 20 Mg PO DAILY Metformin Hcl 500 Mg Tablet 500 Mg PO BIDWMEALS Allergies Allergies: Coded Allergies: No Known Drug Allergies (Unverified , 09/24/20) ROS Review of System As per HPI, rest of the ROS is negative Physical Exam Physical Exam General NAD HEEN OM moist Neck Supple Lungs CTA , Non labored, On RA CV S1S2 Abd soft, NT EXT LE edema + (chronic ) ; Lt arm in sling Neuro Grossly normal Derm No Rash Psych Cooperative No velazquez, No CVA or SP tenderness Vital Signs Vital Signs Date Time Temp Pulse Resp B/P (MAP) Pulse Ox O2 Delivery O2 Flow Rate FiO2 09/25/20 10:32 Room Air 09/25/20 10:02 95 2.0 09/25/20 07:00 98.1 100 18 148/92 (110) 98.1 Assessment & Plan GALI baseline unavailable , ?Vasomotor, Check CK . E-Lytes stable. Supportive care, maintain Hydration, avoid nephrotoxins , strict I/O . Re- evaluate in morning- further agrawal if indicated . Obtain Renal labs/records from PCP Abnormal chest x-ray- Per pulmonary Status post fall with left humeral fracture, nonsurgical versus surgery. HTN- on Losartan and Bumex ; hold if the current renal function is not her baseline /or worsening renal function DM per Primary Labs Labs Laboratory Tests Test 09/24/20 23:10 09/25/20 03:10 09/25/20 10:05 White Blood Count 15.8 x10^3/uL (4.0-11.0) Red Blood Count 4.93 x10^6/uL (3.50-5.40) Hemoglobin 13.7 g/dL (12.0-15.5) Hematocrit 41.2 % (36.0-47.0) Mean Corpuscular Volume 84 fL (79-100) Mean Corpuscular Hemoglobin 28 pg (25-35) Mean Corpuscular Hemoglobin Concent 33 g/dL (31-37) Red Cell Distribution Width 17.8 % (11.5-14.5) Platelet Count 258 x10^3/uL (140-400) Neutrophils (%) (Auto) 89 % (31-73) Lymphocytes (%) (Auto) 5 % (24-48) Monocytes (%) (Auto) 4 % (0-9) Eosinophils (%) (Auto) 1 % (0-3) Basophils (%) (Auto) 1 % (0-3) Neutrophils # (Auto) 14.1 x10^3/uL (1.8-7.7) Lymphocytes # (Auto) 0.8 x10^3/uL (1.0-4.8) Monocytes # (Auto) 0.6 x10^3/uL (0.0-1.1) Eosinophils # (Auto) 0.2 x10^3/uL (0.0-0.7) Basophils # (Auto) 0.1 x10^3/uL (0.0-0.2) Segmented Neutrophils % 85 % (35-66) Band Neutrophils % 5 % (0-9) Lymphocytes % 6 % (24-48) Monocytes % 3 % (0-10) Basophils % 1 % (0-3) Platelet Estimate Adequate (ADEQUATE) Anisocytosis Slight Prothrombin Time 15.4 SEC (11.7-14.0) Prothromb Time International Ratio 1.2 (0.8-1.1) Activated Partial Thromboplast Time 34 SEC (24-38) Sodium Level 137 mmol/L (136-145) Potassium Level 4.8 mmol/L (3.5-5.1) Chloride Level 102 mmol/L (98-107) Carbon Dioxide Level 24 mmol/L (21-32) Anion Gap 11 (6-14) Blood Urea Nitrogen 32 mg/dL (7-20) Creatinine 1.6 mg/dL (0.6-1.0) Estimated GFR (Cockcroft-Gault) 30.5 BUN/Creatinine Ratio 20 (6-20) Glucose Level 189 mg/dL (70-99) Lactic Acid Level 2.5 mmol/L (0.4-2.0) 2.5 mmol/L (0.4-2.0) 3.2 mmol/L (0.4-2.0) Calcium Level 9.3 mg/dL (8.5-10.1) Total Bilirubin 0.3 mg/dL (0.2-1.0) Aspartate Amino Transf (AST/SGOT) 44 U/L (15-37) Alanine Aminotransferase (ALT/SGPT) 38 U/L (14-59) Alkaline Phosphatase 118 U/L (46-116) Troponin I Quantitative < 0.017 ng/mL (0.000-0.055) Total Protein 7.6 g/dL (6.4-8.2) Albumin 3.3 g/dL (3.4-5.0) Albumin/Globulin Ratio 0.8 (1.0-1.7) Laboratory Tests Test 09/24/20 23:10 09/25/20 03:10 09/25/20 10:05 White Blood Count 15.8 x10^3/uL (4.0-11.0) Red Blood Count 4.93 x10^6/uL (3.50-5.40) Hemoglobin 13.7 g/dL (12.0-15.5) Hematocrit 41.2 % (36.0-47.0) Mean Corpuscular Volume 84 fL (79-100) Mean Corpuscular Hemoglobin 28 pg (25-35) Mean Corpuscular Hemoglobin Concent 33 g/dL (31-37) Red Cell Distribution Width 17.8 % (11.5-14.5) Platelet Count 258 x10^3/uL (140-400) Neutrophils (%) (Auto) 89 % (31-73) Lymphocytes (%) (Auto) 5 % (24-48) Monocytes (%) (Auto) 4 % (0-9) Eosinophils (%) (Auto) 1 % (0-3) Basophils (%) (Auto) 1 % (0-3) Neutrophils # (Auto) 14.1 x10^3/uL (1.8-7.7) Lymphocytes # (Auto) 0.8 x10^3/uL (1.0-4.8) Monocytes # (Auto) 0.6 x10^3/uL (0.0-1.1) Eosinophils # (Auto) 0.2 x10^3/uL (0.0-0.7) Basophils # (Auto) 0.1 x10^3/uL (0.0-0.2) Segmented Neutrophils % 85 % (35-66) Band Neutrophils % 5 % (0-9) Lymphocytes % 6 % (24-48) Monocytes % 3 % (0-10) Basophils % 1 % (0-3) Platelet Estimate Adequate (ADEQUATE) Anisocytosis Slight Prothrombin Time 15.4 SEC (11.7-14.0) Prothromb Time International Ratio 1.2 (0.8-1.1) Activated Partial Thromboplast Time 34 SEC (24-38) Sodium Level 137 mmol/L (136-145) Potassium Level 4.8 mmol/L (3.5-5.1) Chloride Level 102 mmol/L (98-107) Carbon Dioxide Level 24 mmol/L (21-32) Anion Gap 11 (6-14) Blood Urea Nitrogen 32 mg/dL (7-20) Creatinine 1.6 mg/dL (0.6-1.0) Estimated GFR (Cockcroft-Gault) 30.5 BUN/Creatinine Ratio 20 (6-20) Glucose Level 189 mg/dL (70-99) Lactic Acid Level 2.5 mmol/L (0.4-2.0) 2.5 mmol/L (0.4-2.0) 3.2 mmol/L (0.4-2.0) Calcium Level 9.3 mg/dL (8.5-10.1) Total Bilirubin 0.3 mg/dL (0.2-1.0) Aspartate Amino Transf (AST/SGOT) 44 U/L (15-37) Alanine Aminotransferase (ALT/SGPT) 38 U/L (14-59) Alkaline Phosphatase 118 U/L (46-116) Troponin I Quantitative < 0.017 ng/mL (0.000-0.055) Total Protein 7.6 g/dL (6.4-8.2) Albumin 3.3 g/dL (3.4-5.0) Albumin/Globulin Ratio 0.8 (1.0-1.7) Review All relevant outside records, renal labs, imaging studies, telemetry/EKG's were reviewed. Images Images STUDY: CT head and cervical spine without contrast CT head: No acute intracranial hemorrhage. Cortical/subcortical hypoattenuation of the right occipital lobe favored a chronic infarct. No localized mass effect, midline shift or hydrocephalus. White matter findings most frequently on account of chronic microvascular ischemic change. Intracranial calcific atherosclerosis. No depressed calvarial fracture. Calvarial hyperostosis. Normally aerated paranasal sinuses and mastoid air cells. CT cervical spine: Degraded study on account of patient body habitus in conjunction with osteopenia. No displaced fracture or traumatic malalignment. Multilevel spondylosis to varying extent superimposed on exaggerated lordosis. Central canal stenosis appearing greatest at C3-C4 and C4-C5 estimated at no more than moderate. Osseous neural foraminal stenosis greatest on the right at C3-C4 and C4-C5. Degenerative changes at the craniocervical and atlantoaxial articulations. Soft tissue prominence dorsal to the dens with no more than mild stenosis. No paraspinous hematoma to indicate occult osseous injury. Prominent and somewhat heterogeneous thyroid lobe without a large nodule that would meet size criteria for dedicated follow-up. Scattered calcific atherosclerosis. No apical pneumothorax. IMPRESSION: CT head: 1. No acute intracranial abnormality by CT. Cortical/subcortical hypoattenuation involving the right occipital lobe is favored the sequela of a chronic infarct. If there is clinical concern for a recent ischemic event MRI would be more sensitive CT cervical spine: 1. Limited study due to patient body habitus and osteopenia. Taking this into consideration, no acute fracture. 2. Multilevel spondylosis greatest at C3-C4 and C4-C5. Electronically signed by: RALPH SHEPPARD MD (09/25/2020 12:14 AM) PROCEDURE: SHOULDER 2+V LEFT Exam Date: 09/24/2020 10:38 PM XR SHOULDER_LEFT 2+ VIEWS Indication: Reason: shoulder pain, deformity / Spl. Instructions: / History: . FINDINGS/ IMPRESSION: There is an acute minimally displaced fracture through the proximal humeral metaphysis without significant appreciable angulation. Moderate degenerative changes are noted. Left lung volume is low with suggestion of left basilar atelectasis and or infiltrates. Electronically signed by: Christopher Alaniz MD (09/25/2020 12:51 AM) PROCEDURE: PELVIS Exam Date: 09/24/2020 10:38 PM XR PELVIS 1-2V Indication: Reason: shoulder pain, deformity / Spl. Instructions: / History: . FINDINGS/ IMPRESSION: Bones are diffusely osteopenic which limits evaluation. Imaging technique further limits evaluation. Moderate degenerative changes are seen in the hips bilaterally. Degenerative changes are noted in the lower lumbar spine and SI joints and pubic symphysis. There is a small subcapital linear lucency along the medial aspect of the left femoral neck which could be secondary to an overh anging osteophyte, though a nondisplaced acute fracture cannot be excluded. If the patient has symptoms in the left hip, consider further evaluation with CT or MRI. Other visualized osseous structures appear intact. Electronically signed by: Christopher Alaniz MD (09/25/2020 12:54 AM) PROCEDURE: CHEST AP ONLY Exam Date: 09/24/2020 10:38 PM XR CHEST 1V Indication: Reason: shoulder pain, deformity / Spl. Instructions: / History: . FINDINGS/ IMPRESSION: The cardiac silhouette is enlarged with mild congestion. Prominent interstitial markings bilaterally are nonspecific. Left basilar atelectasis and or infiltrat es are noted. No pleural effusion or pneumothorax. Left proximal humerus fracture is noted. Electronically signed by: Christopher Alaniz MD (09/25/2020 12:51 AM) AJ PALENCIA MD Sep 25, 2020 12:20
[2020-09-25 13:23] LABS: BILIRUBIN,URINE NEGATIVE (NEG); CLARITY,URINE CLEAR; COLOR,URINE YELLOW; NITRITE,URINE NEGATIVE (NEG); PH,URINE 5.5 (<5.0-8.0); PROTEIN,URINE NEGATIVE (NEG-TRACE); UROBILINOGEN,URINE 0.2 mg/dL (0.2 mg/dL)
[2020-09-25 13:25] LABS: HYALINE CASTS, URINE MODERATE /HPF
[2020-09-25 13:36] LABS: AMORPHOUS SEDIMENT,UR PRESENT /HPF; BACTERIA,URINE FEW /HPF (0-FEW)
[2020-09-25 15:00] VITALS: BP 115/63
[2020-09-25] MEDS: BUMETANIDE 1 MG TABLET. PO SCH (17:26)
[2020-09-25 19:15] VITALS: BP 119/72
[2020-09-25] MEDS ORDERED: APIXABAN 5 MG TABLET. PO SCH (21:00)
[2020-09-25] MEDS: LACTOBACILLUS RHAMNOSUS GG 1 CAPSULE. PO SCH (21:11)
[2020-09-25] MEDS: INSULIN GLARGINE SYRINGE. SQ SCH (21:20)
--- NOTE | 2020-09-25 21:57 | DISCH ---
MARY HARRIS DO 09/25/20 2157: DISCHARGE INSTRUCTIONS Activity After Discharge Activity Instructions for Disc: Avoid exertion Other activity instructions: maintain left shoulder immobilizer. Lifting Instructions after Dis: No heavy lifting, No pulling or pushing Driving Instructions after Dis: Do not drive Diet after Discharge Diet after Discharge: Regular Diet Texture: Regular Wound Incision Care Wound/Incision Care: Ice to area for comfort Community/Resources/Services Services at Discharge: OT Evaluate & Treat KIM GRAY MD 09/26/20 1518: DISCHARGE INSTRUCTIONS Condition on Discharge Condition on Discharge: Stable Follow-Up Follow up with: PCP within 2 weeks of discharge Follow Up With: Dr. Hanson your ham facer within 2 months of discharge MARY HARRIS DO Sep 25, 2020 21:57 KIM GRAY MD Sep 26, 2020 15:18
[2020-09-25 22:50] VITALS: BP 133/80
[2020-09-25] MEDS ORDERED: DEXTROSE 50% 25 GM / 50ML DISP.SYRIN. IV PRN (23:15)
[2020-09-26] MEDS: HYDROcodone/APAP 5/325MG 1 TAB TABLET PO PRN ×3 (01:16→16:55)
[2020-09-26 02:55] VITALS: BP 118/81
[2020-09-26] MEDS: PIPERACILLIN/TAZOBACTAM 2.25 GM in IV NORMAL SALINE 50ML 50 ML IV SCH ×4 (06:21→23:09)
[2020-09-26 06:45] VITALS: BP 135/80
[2020-09-26 07:13] LABS: BASO # 0.1 x10^3/uL (0.0-0.2); BASO % 1 % (0-3); EOS # 0.6 x10^3/uL (0.0-0.7); EOS % 7 % (0-3); HEMATOCRIT 35.9 % (36.0-47.0); LYMPH # 1.7 x10^3/uL (1.0-4.8); LYMPH % 20 % (24-48); MEAN CORPUSCULAR HEMOGLOBIN 28 pg (25-35); MEAN CORPUSCULAR HGB CONC 34 g/dL (31-37); MEAN CORPUSCULAR VOLUME 84 fL (79-100); MONO # 0.7 x10^3/uL (0.0-1.1); MONO % 9 % (0-9); NEUT # 5.3 x10^3/uL (1.8-7.7); NEUT % 64 % (31-73); PLATELET COUNT 193 x10^3/uL (140-400); RED BLOOD COUNT 4.29 x10^6/uL (3.50-5.40); RED CELL DISTRIBUTION WIDTH 17.9 % (11.5-14.5); WHITE BLOOD COUNT 8.3 x10^3/uL (4.0-11.0)
[2020-09-26] MEDS ORDERED: PANTOPRAZOLE 40 MG TABLET.DR. PO SCH (07:30)
[2020-09-26 08:15] LABS: ALBUMIN 2.5 g/dL (3.4-5.0); ALBUMIN/GLOBULIN RATIO 0.6 (1.0-1.7); CALCIUM 8.6 mg/dL (8.5-10.1); CREATININE 1.3 mg/dL (0.6-1.0); TOTAL PROTEIN 6.4 g/dL (6.4-8.2)
[2020-09-26 08:16] LABS: GFR 38.7; POTASSIUM 4.8 mmol/L (3.5-5.1); TOTAL BILIRUBIN 0.6 mg/dL (0.2-1.0)
[2020-09-26] MEDS ORDERED: ATORVASTATIN CALCIUM 20 MG TABLET PO SCH (09:00)
--- NOTE | 2020-09-26 09:16 | PDOC ---
PULMONARY PROGRESS NOTES DATE: 09/26/20 TIME: 09:14 Subjective no soa mild cough Vitals Vital Signs Date Time Temp Pulse Resp B/P (MAP) Pulse Ox O2 Delivery O2 Flow Rate FiO2 09/26/20 06:45 98.1 75 20 135/80 (98) 97 Nasal Cannula 2.0 98.1 General: Alert, No acute distress Lungs: Clear Cardiovascular: S1 Abdomen: Soft Neuro Exam: Alert Extremities: No Edema Skin: Warm Labs Laboratory Tests Test 09/24/20 23:10 09/25/20 03:10 09/25/20 10:05 09/25/20 12:31 White Blood Count 15.8 x10^3/uL (4.0-11.0) Red Blood Count 4.93 x10^6/uL (3.50-5.40) Hemoglobin 13.7 g/dL (12.0-15.5) Hematocrit 41.2 % (36.0-47.0) Mean Corpuscular Volume 84 fL (79-100) Mean Corpuscular Hemoglobin 28 pg (25-35) Mean Corpuscular Hemoglobin Concent 33 g/dL (31-37) Red Cell Distribution Width 17.8 % (11.5-14.5) Platelet Count 258 x10^3/uL (140-400) Neutrophils (%) (Auto) 89 % (31-73) Lymphocytes (%) (Auto) 5 % (24-48) Monocytes (%) (Auto) 4 % (0-9) Eosinophils (%) (Auto) 1 % (0-3) Basophils (%) (Auto) 1 % (0-3) Neutrophils # (Auto) 14.1 x10^3/uL (1.8-7.7) Lymphocytes # (Auto) 0.8 x10^3/uL (1.0-4.8) Monocytes # (Auto) 0.6 x10^3/uL (0.0-1.1) Eosinophils # (Auto) 0.2 x10^3/uL (0.0-0.7) Basophils # (Auto) 0.1 x10^3/uL (0.0-0.2) Segmented Neutrophils % 85 % (35-66) Band Neutrophils % 5 % (0-9) Lymphocytes % 6 % (24-48) Monocytes % 3 % (0-10) Basophils % 1 % (0-3) Platelet Estimate Adequate (ADEQUATE) Anisocytosis Slight Prothrombin Time 15.4 SEC (11.7-14.0) Prothromb Time International Ratio 1.2 (0.8-1.1) Activated Partial Thromboplast Time 34 SEC (24-38) Sodium Level 137 mmol/L (136-145) Potassium Level 4.8 mmol/L (3.5-5.1) Chloride Level 102 mmol/L (98-107) Carbon Dioxide Level 24 mmol/L (21-32) Anion Gap 11 (6-14) Blood Urea Nitrogen 32 mg/dL (7-20) Creatinine 1.6 mg/dL (0.6-1.0) Estimated GFR (Cockcroft-Gault) 30.5 BUN/Creatinine Ratio 20 (6-20) Glucose Level 189 mg/dL (70-99) Lactic Acid Level 2.5 mmol/L (0.4-2.0) 2.5 mmol/L (0.4-2.0) 3.2 mmol/L (0.4-2.0) Calcium Level 9.3 mg/dL (8.5-10.1) Total Bilirubin 0.3 mg/dL (0.2-1.0) Aspartate Amino Transf (AST/SGOT) 44 U/L (15-37) Alanine Aminotransferase (ALT/SGPT) 38 U/L (14-59) Alkaline Phosphatase 118 U/L (46-116) Troponin I Quantitative < 0.017 ng/mL (0.000-0.055) Total Protein 7.6 g/dL (6.4-8.2) Albumin 3.3 g/dL (3.4-5.0) Albumin/Globulin Ratio 0.8 (1.0-1.7) Creatine Kinase 22 U/L (26-192) Procalcitonin < 0.05 ng/mL (0.00-0.10) Urine Collection Type Unknown Urine Color Yellow Urine Clarity Clear Urine pH 5.5 (<5.0-8.0) Urine Specific [place] 1.020 (1.000-1.030) Urine Protein Negative mg/dL (NEG-TRACE) Urine Glucose (UA) 250 mg/dL (NEG) Urine Ketones (Stick) Negative mg/dL (NEG) Urine Blood Negative (NEG) Urine Nitrite Negative (NEG) Urine Bilirubin Negative (NEG) Urine Urobilinogen Dipstick 0.2 mg/dL (0.2 mg/dL) Urine Leukocyte Esterase Small (NEG) Urine RBC 6-10 /HPF (0-2) Urine WBC 1-4 /HPF (0-4) Urine Squamous Epithelial Cells Mod /LPF Urine Amorphous Sediment Present /HPF Urine Bacteria Few /HPF (0-FEW) Urine Hyaline Casts Moderate /HPF Urine Mucus Mod /LPF Test 09/25/20 13:45 09/25/20 17:00 09/25/20 20:26 09/26/20 06:25 Lactic Acid Level 2.3 mmol/L (0.4-2.0) Glucose (Fingerstick) 174 mg/dL (70-99) 239 mg/dL (70-99) White Blood Count 8.3 x10^3/uL (4.0-11.0) Red Blood Count 4.29 x10^6/uL (3.50-5.40) Hemoglobin 12.0 g/dL (12.0-15.5) Hematocrit 35.9 % (36.0-47.0) Mean Corpuscular Volume 84 fL (79-100) Mean Corpuscular Hemoglobin 28 pg (25-35) Mean Corpuscular Hemoglobin Concent 34 g/dL (31-37) Red Cell Distribution Width 17.9 % (11.5-14.5) Platelet Count 193 x10^3/uL (140-400) Neutrophils (%) (Auto) 64 % (31-73) Lymphocytes (%) (Auto) 20 % (24-48) Monocytes (%) (Auto) 9 % (0-9) Eosinophils (%) (Auto) 7 % (0-3) Basophils (%) (Auto) 1 % (0-3) Neutrophils # (Auto) 5.3 x10^3/uL (1.8-7.7) Lymphocytes # (Auto) 1.7 x10^3/uL (1.0-4.8) Monocytes # (Auto) 0.7 x10^3/uL (0.0-1.1) Eosinophils # (Auto) 0.6 x10^3/uL (0.0-0.7) Basophils # (Auto) 0.1 x10^3/uL (0.0-0.2) Sodium Level 136 mmol/L (136-145) Potassium Level 4.8 mmol/L (3.5-5.1) Chloride Level 105 mmol/L (98-107) Carbon Dioxide Level 25 mmol/L (21-32) Anion Gap 6 (6-14) Blood Urea Nitrogen 25 mg/dL (7-20) Creatinine 1.3 mg/dL (0.6-1.0) Estimated GFR (Cockcroft-Gault) 38.7 BUN/Creatinine Ratio 19 (6-20) Glucose Level 163 mg/dL (70-99) Calcium Level 8.6 mg/dL (8.5-10.1) Total Bilirubin 0.6 mg/dL (0.2-1.0) Aspartate Amino Transf (AST/SGOT) 30 U/L (15-37) Alanine Aminotransferase (ALT/SGPT) 29 U/L (14-59) Alkaline Phosphatase 92 U/L (46-116) Total Protein 6.4 g/dL (6.4-8.2) Albumin 2.5 g/dL (3.4-5.0) Albumin/Globulin Ratio 0.6 (1.0-1.7) Test 09/26/20 06:53 Glucose (Fingerstick) 161 mg/dL (70-99) Laboratory Tests Test 09/25/20 10:05 09/25/20 12:31 09/25/20 13:45 09/25/20 17:00 Lactic Acid Level 3.2 mmol/L (0.4-2.0) 2.3 mmol/L (0.4-2.0) Urine Collection Type Unknown Urine Color Yellow Urine Clarity Clear Urine pH 5.5 (<5.0-8.0) Urine Specific [place] 1.020 (1.000-1.030) Urine Protein Negative mg/dL (NEG-TRACE) Urine Glucose (UA) 250 mg/dL (NEG) Urine Ketones (Stick) Negative mg/dL (NEG) Urine Blood Negative (NEG) Urine Nitrite Negative (NEG) Urine Bilirubin Negative (NEG) Urine Urobilinogen Dipstick 0.2 mg/dL (0.2 mg/dL) Urine Leukocyte Esterase Small (NEG) Urine RBC 6-10 /HPF (0-2) Urine WBC 1-4 /HPF (0-4) Urine Squamous Epithelial Cells Mod /LPF Urine Amorphous Sediment Present /HPF Urine Bacteria Few /HPF (0-FEW) Urine Hyaline Casts Moderate /HPF Urine Mucus Mod /LPF Glucose (Fingerstick) 174 mg/dL (70-99) Test 09/25/20 20:26 09/26/20 06:25 09/26/20 06:53 Glucose (Fingerstick) 239 mg/dL (70-99) 161 mg/dL (70-99) White Blood Count 8.3 x10^3/uL (4.0-11.0) Red Blood Count 4.29 x10^6/uL (3.50-5.40) Hemoglobin 12.0 g/dL (12.0-15.5) Hematocrit 35.9 % (36.0-47.0) Mean Corpuscular Volume 84 fL (79-100) Mean Corpuscular Hemoglobin 28 pg (25-35) Mean Corpuscular Hemoglobin Concent 34 g/dL (31-37) Red Cell Distribution Width 17.9 % (11.5-14.5) Platelet Count 193 x10^3/uL (140-400) Neutrophils (%) (Auto) 64 % (31-73) Lymphocytes (%) (Auto) 20 % (24-48) Monocytes (%) (Auto) 9 % (0-9) Eosinophils (%) (Auto) 7 % (0-3) Basophils (%) (Auto) 1 % (0-3) Neutrophils # (Auto) 5.3 x10^3/uL (1.8-7.7) Lymphocytes # (Auto) 1.7 x10^3/uL (1.0-4.8) Monocytes # (Auto) 0.7 x10^3/uL (0.0-1.1) Eosinophils # (Auto) 0.6 x10^3/uL (0.0-0.7) Basophils # (Auto) 0.1 x10^3/uL (0.0-0.2) Sodium Level 136 mmol/L (136-145) Potassium Level 4.8 mmol/L (3.5-5.1) Chloride Level 105 mmol/L (98-107) Carbon Dioxide Level 25 mmol/L (21-32) Anion Gap 6 (6-14) Blood Urea Nitrogen 25 mg/dL (7-20) Creatinine 1.3 mg/dL (0.6-1.0) Estimated GFR (Cockcroft-Gault) 38.7 BUN/Creatinine Ratio 19 (6-20) Glucose Level 163 mg/dL (70-99) Calcium Level 8.6 mg/dL (8.5-10.1) Total Bilirubin 0.6 mg/dL (0.2-1.0) Aspartate Amino Transf (AST/SGOT) 30 U/L (15-37) Alanine Aminotransferase (ALT/SGPT) 29 U/L (14-59) Alkaline Phosphatase 92 U/L (46-116) Total Protein 6.4 g/dL (6.4-8.2) Albumin 2.5 g/dL (3.4-5.0) Albumin/Globulin Ratio 0.6 (1.0-1.7) Medications Active Scripts Medications Dose Route/Sig Max Daily Dose Days Date Category Hydrocodone-Apap 5-325 (Hydrocodone Bit/Acetaminophen) 1 Tab Tablet 1 Tab PO PRN Q6HRS PRN 09/25/20 Reported Bumetanide 0.5 Mg Tablet 0.5 Mg PO BID 09/25/20 Reported Omeprazole 20 Mg Capsule.dr 20 Mg PO QODAY 09/25/20 Reported Levemir Flextouch (Insulin Detemir) 100 Unit/1 Ml Insuln.pen 18 Units SQ HS 09/25/20 Reported Cozaar (Losartan Potassium) 25 Mg Tablet 25 Mg PO DAILY 09/25/20 Reported Cartia Xt (Diltiazem Hcl) 180 Mg Cap.er.24h 360 Mg PO DAILY 09/25/20 Reported Glipizide Er (Glipizide) 5 Mg Tab.er.24 5 Mg PO BIDAC 09/25/20 Reported Eliquis (Apixaban) 5 Mg Tablet 5 Mg PO BID 09/25/20 Reported Atorvastatin Calcium 20 Mg Tablet 20 Mg PO DAILY 09/25/20 Reported Metformin Hcl 500 Mg Tablet 500 Mg PO BIDWMEALS 09/25/20 Reported Impression . 1. Abnormal chest x-ray, likely left basilar atelectasis. She has no fever. The white cell count is probably reactive secondary to her fracture. At this time, she is currently already on Zosyn. She could be switched to oral Augmentin and could be discharged to skilled care. 2. Status post fall with left humeral fracture, nonsurgical versus surgery. 3. Mild reactive leukocytosis. 4. No significant tobacco history. 5. Mild acute kidney injury. Plan . 1. From a pulmonary standpoint, she could be discharged on oral Augmentin. 2. Wean her off oxygen. 3. Incentive spirometry. 4. Eliquis for AFib. 5. Monitor renal function. Improving with hydration. 6. Discussed with RN We will be available for any further recommendations. From a pulmonary standpoint, We will see her p.r.n. SHANTHI SHAH MD Sep 26, 2020 09:16
[2020-09-26] MEDS: APIXABAN 5 MG TABLET. PO SCH ×2 (09:24→20:39)
[2020-09-26] MEDS: LACTOBACILLUS RHAMNOSUS GG 1 CAPSULE. PO SCH ×2 (09:24→20:39)
[2020-09-26] MEDS: glipiZIDE ER 2.5 MG TAB.ER.24 PO SCH (09:24)
[2020-09-26] MEDS: BUMETANIDE 1 MG TABLET. PO SCH ×2 (09:24→15:57)
[2020-09-26] MEDS: LOSARTAN POTASSIUM 25 MG TABLET. PO SCH (09:25)
--- NOTE | 2020-09-26 09:30 | CARD ---
MR#: [id number] Date of Study: 09/26/2020 Ordering Physician: NICOLLE SEAY, Referring Physician: NICOLLE SEAY Tech: David Menjivar [facility] APPROVED REPORT EXAM: Two-dimensional and M-mode echocardiogram with Doppler and color Doppler. Other Information Quality : FairHR: 82bpm Rhythm : Atrial FibrillationTechnically limited study due to L humerus fracture. Immobilzation dev ice. INDICATION Congestive Heart Failure RISK FACTORS Hypertension Obesity Hyperlipidemia Diabetes 2D DIMENSIONS Left Atrium(2D)5.4 (1.6-4.0cm)IVSd1.3 (0.7-1.1cm) Aortic Root(2D)3.5 (2.0-3.7cm)LVDd3.9 (3.9-5.9cm) LVOT Diameter1.8 (1.8-2.4cm)PWd1.3 (0.7-1.1cm) LVDs2.4 (2.5-4.0cm)FS (%) 37.4 % SV43.8 mlLVEF(%)68.1 (>50%) Aortic Valve AoV Peak Eros.113.7cm/sAoV VTI23.4cm AO Peak GR.5.2mmHgLVOT Peak Eors.70.0cm/s AO Mean GR.3mmHgAVA (VMAX)1.52cm2 Mitral Valve MV E Syvajnpj962.0cm/sMV E Peak Gr.8mmHg MV DECEL [id number] A Piimzyvd83.7cm/s MV E Mean Gr.3mmHgE/A Ratio3.2 Pulmonary Valve PV Peak Hyytysbf93.9cm/s Tricuspid Valve TR P. Bhiosxyc101zj/sTR Peak Gr.32mmHg LEFT VENTRICLE The left ventricle is normal size. There is mild to moderate concentric left ventricular hypertrophy. The left ventricular systolic function is normal. The ejection fraction is 60-65%. There is normal L V segmental wall motion. Atrial fibrillation make diastolic function measurements unreliable. No left ventricle thrombus noted on this study. There is no ventricular septal defect visualized. There is n o left ventricular aneurysm. There is no mass noted in the left ventricle. RIGHT VENTRICLE RV is not well visualized but maybe mildly enlarged. There is normal right ventricular wall thickness . Systolic function is borderline reduced. Tapse 13 mm. ATRIA The left atrium is moderately dilated. The right atrium is moderately dilated. The interatrial septum is intact with no evidence for an atrial septal defect or patent foramen ovale as noted on 2-D or Do ppler imaging. AORTIC VALVE The aortic valve is calcified but opens well. Doppler and Color Flow revealed mild aortic regurgitati on. There is no significant aortic valvular stenosis. There is no aortic valvular vegetation. MITRAL VALVE Mitral annular calcification is moderate. There is no evidence of mitral valve prolapse. There is no mitral valve stenosis. Doppler and Color-flow revealed mild mitral regurgitation. TRICUSPID VALVE There is tricuspid annular calcification. Doppler and Color Flow revealed mild to moderate tricuspid regurgitation. There is no tricuspid valve prolapse or vegetation. There is no tricuspid valve stenos is. PULMONIC VALVE Pulmonic valve not well seen. Doppler and Color Flow revealed no pulmonic valvular regurgitation. The re is no pulmonic valvular stenosis. GREAT VESSELS The aortic root is normal in size. The ascending aorta is normal in size. The pulmonary artery is nor mal. The IVC is normal in size and collapses >50% with inspiration. PERICARDIAL EFFUSION There is no pleural effusion. There is no evidence of significant pericardial effusion. Critical Notification Critical Value: No <Conclusion> The left ventricular systolic function is normal. The ejection fraction is 60-65%. There is normal LV segmental wall motion. The left atrium is moderately dilated. Mild aortic regurgitation. Mild mitral regurgitation. Mild to moderate tricuspid regurgitation. There is no evidence of significant pericardial effusion. Signed by : Sedrick Yo, Electronically Approved : 09/26/2020 09:29:38
[2020-09-26] MEDS: INSULIN LISPRO 300 UNITS/3 ML VIAL. SQ SCH ×3 (09:45→16:55)
--- NOTE | 2020-09-26 09:57 | PDOC ---
Renal-Progress Notes Subjective Notes Notes NO NEW COMPLAINTS History of Present Illness Hx of present illness STABLE Vitals Vitals Vital Signs Date Time Temp Pulse Resp B/P (MAP) Pulse Ox O2 Delivery O2 Flow Rate FiO2 09/26/20 09:25 75 135/80 09/26/20 06:45 98.1 20 97 Nasal Cannula 2.0 98.1 Weight Weight [ ] I.O. Intake and Output Intake and Output 09/26/20 07:00 Intake Total 50 ml Output Total 400 ml Balance -350 ml Intake IV Total 50 ml Output Urine Total 400 ml # Voids 7 Labs Labs Laboratory Tests Test 09/25/20 10:05 09/25/20 12:31 09/25/20 13:45 09/25/20 17:00 Lactic Acid Level 3.2 mmol/L (0.4-2.0) 2.3 mmol/L (0.4-2.0) Urine Collection Type Unknown Urine Color Yellow Urine Clarity Clear Urine pH 5.5 (<5.0-8.0) Urine Specific [place] 1.020 (1.000-1.030) Urine Protein Negative mg/dL (NEG-TRACE) Urine Glucose (UA) 250 mg/dL (NEG) Urine Ketones (Stick) Negative mg/dL (NEG) Urine Blood Negative (NEG) Urine Nitrite Negative (NEG) Urine Bilirubin Negative (NEG) Urine Urobilinogen Dipstick 0.2 mg/dL (0.2 mg/dL) Urine Leukocyte Esterase Small (NEG) Urine RBC 6-10 /HPF (0-2) Urine WBC 1-4 /HPF (0-4) Urine Squamous Epithelial Cells Mod /LPF Urine Amorphous Sediment Present /HPF Urine Bacteria Few /HPF (0-FEW) Urine Hyaline Casts Moderate /HPF Urine Mucus Mod /LPF Glucose (Fingerstick) 174 mg/dL (70-99) Test 09/25/20 20:26 09/26/20 06:25 09/26/20 06:53 Glucose (Fingerstick) 239 mg/dL (70-99) 161 mg/dL (70-99) White Blood Count 8.3 x10^3/uL (4.0-11.0) Red Blood Count 4.29 x10^6/uL (3.50-5.40) Hemoglobin 12.0 g/dL (12.0-15.5) Hematocrit 35.9 % (36.0-47.0) Mean Corpuscular Volume 84 fL (79-100) Mean Corpuscular Hemoglobin 28 pg (25-35) Mean Corpuscular Hemoglobin Concent 34 g/dL (31-37) Red Cell Distribution Width 17.9 % (11.5-14.5) Platelet Count 193 x10^3/uL (140-400) Neutrophils (%) (Auto) 64 % (31-73) Lymphocytes (%) (Auto) 20 % (24-48) Monocytes (%) (Auto) 9 % (0-9) Eosinophils (%) (Auto) 7 % (0-3) Basophils (%) (Auto) 1 % (0-3) Neutrophils # (Auto) 5.3 x10^3/uL (1.8-7.7) Lymphocytes # (Auto) 1.7 x10^3/uL (1.0-4.8) Monocytes # (Auto) 0.7 x10^3/uL (0.0-1.1) Eosinophils # (Auto) 0.6 x10^3/uL (0.0-0.7) Basophils # (Auto) 0.1 x10^3/uL (0.0-0.2) Sodium Level 136 mmol/L (136-145) Potassium Level 4.8 mmol/L (3.5-5.1) Chloride Level 105 mmol/L (98-107) Carbon Dioxide Level 25 mmol/L (21-32) Anion Gap 6 (6-14) Blood Urea Nitrogen 25 mg/dL (7-20) Creatinine 1.3 mg/dL (0.6-1.0) Estimated GFR (Cockcroft-Gault) 38.7 BUN/Creatinine Ratio 19 (6-20) Glucose Level 163 mg/dL (70-99) Calcium Level 8.6 mg/dL (8.5-10.1) Total Bilirubin 0.6 mg/dL (0.2-1.0) Aspartate Amino Transf (AST/SGOT) 30 U/L (15-37) Alanine Aminotransferase (ALT/SGPT) 29 U/L (14-59) Alkaline Phosphatase 92 U/L (46-116) Total Protein 6.4 g/dL (6.4-8.2) Albumin 2.5 g/dL (3.4-5.0) Albumin/Globulin Ratio 0.6 (1.0-1.7) Review of Systems Constitutional: yes: weakness, alert Ears/Nose/Throat: Yes: no symptom reported Eyes: Yes: no symptom reported Pulmonary: Yes no symptom reported Cardiovascular: Yes no symptom reported Gastrointestional: Yes: constipation Genitourinary: Yes: no symptom reported Musculoskeletal: Yes: no symptom reported Skin: Yes no symptom reported Psychiatric/Neurological: Yes: no symptom reported Endocrine: Yes: no symptom reported Physical Exam General Appearance: no apparent distress Skin: warm Respiratory: decreased breath sounds Heart: S1S2 Abdomen: soft Genitourinary: bladder flat Extremities: pulses present Neurology: alert Musculoskeletal: Osteoarthritis Assessment Assessment IMP DEHYDRATION GALI DUE TO ABOVE-CR DOWN TO 1.3 L HUMERAL FX PLAN ENC PO HYDRATION WILL FOLLOW JOSE MARTIN LANDRY MD Sep 26, 2020 09:57
[2020-09-26 11:00] VITALS: BP 136/76
[2020-09-26] MEDS: AZITHROMYCIN 500 MG in IV NORMAL SALINE 250ML 250 ML IV SCH (11:09)
--- NOTE | 2020-09-26 11:18 | PDOC2 ---
NIESHA SPENCE BRIM POUNCING MACHINE OPERATOR 09/26/20 1117: CARDIAC CONSULT DATE OF CONSULT Date of Consult DATE: 09/26/20 TIME: 11:04 REASON FOR CONSULT Reason for Consult: CHF REFERRING PHYSICIAN Referring Physician: Dr. Zabala SOURCE Source: Chart review, Patient HISTORY OF PRESENT ILLNESS HISTORY OF PRESENT ILLNESS This is an 85 yo female who presented secondary to left arm pain secondary to fall. Patient reports she was in chair reaching for remote when she fell. Did not hit head or lose consciousness. Complained of arm pain after fall, which prompted visit to the ED. CXR noted with infiltrate, which prompted this consu lt. Patient does reports some congestion with productive cough over the last week although does not reports any increasing shortness of breath. Has a history of AFIB. Follows with [facility], Dr. Ambriz. She denies any dizziness, diaphoresis, chest pain, or nausea/vomiting. Is on Eliquis for stroke prophylaxis. PAST MEDICAL HISTORY Cardiovascular: AFIB, CHF, HTN, Hyperlipidemia CENTRAL NERVOUS SYSTEM: CVA GI: GERD Psych: Depression Endocrine: Diabetes PAST SURGICAL HISTORY Past Surgical History: Cholecystectomy, No pertinent history FAMILY HISTORY Family History: Hypertension SOCIAL HISTORY Smoke: No ALCOHOL: none Drugs: None Lives: with Family CURRENT MEDICATIONS CURRENT MEDICATIONS Current Medications Medications (Trade) Dose Ordered Sig/Marii Route PRN Reason Start Time Stop Time Status Last Admin Dose Admin Diltiazem HCl (Cardizem 24hr Cd) 360 mg DAILY PO 09/25/20 12:00 09/26/20 09:25 Acetaminophen/ Hydrocodone Bitart (Lortab 5/325) 1 tab PRN Q6HRS PRN PO PAIN 09/25/20 11:30 09/26/20 10:55 Losartan Potassium (Cozaar) 25 mg DAILY PO 09/25/20 12:00 09/26/20 09:25 Bumetanide (Bumex) 0.5 mg BID94 PO 09/25/20 16:00 09/26/20 09:24 Glipizide (Glucotrol Er) 5 mg DAILY08 PO 09/25/20 12:00 09/26/20 09:24 Insulin Glargine (Lantus Syringe) 18 unit QHS SQ 09/25/20 21:00 09/25/20 21:20 Pantoprazole Sodium (Protonix) 40 mg QODAY@0730 PO 09/26/20 07:30 09/26/20 09:24 Sodium Chloride 1,000 ml @ 50 mls/hr Q20H IV 09/25/20 12:00 09/25/20 21:21 Lactobacillus Rhamnosus (Culturelle) 1 cap BID PO 09/25/20 21:00 09/26/20 09:24 Insulin Human Lispro (HumaLOG) 0-5 UNITS TIDWMEALS SQ 09/26/20 08:00 09/26/20 09:45 ALLERGIES ALLERGIES: Coded Allergies: No Known Drug Allergies (Unverified , 09/24/20) ROS Review of System 14 point ROS conducted with pertinent positives noted above in HPI PHYSICAL EXAM General: Alert, Oriented X3, Cooperative, No acute distress HEENT: Atraumatic Lungs: Other (diminished bases ) Heart: Other (AFIB, rate controlled ) Abdomen: Soft Extremities: No edema, Normal pulses, Other (left arm immobilizer ) Skin: No significant lesion Neuro: Normal speech, Sensation intact Psych/Mental Status: Mental status NL, Mood NL MUSCULOSKELETAL: Osteoarthritic changes both hands VITALS/I&O VITALS/I&O: Vital Signs Date Time Temp Pulse Resp B/P (MAP) Pulse Ox O2 Delivery O2 Flow Rate FiO2 09/26/20 09:25 75 135/80 09/26/20 08:30 Nasal Cannula 2.0 09/26/20 06:45 98.1 20 97 98.1 I & O 09/25/20 09/25/20 09/26/20 15:00 23:00 07:00 Intake Total 50 ml Output Total 400 ml Balance -350 ml LABS Lab: Laboratory Tests Test 09/25/20 12:31 09/25/20 13:45 09/25/20 17:00 09/25/20 20:26 Urine Collection Type Unknown Urine Color Yellow Urine Clarity Clear Urine pH 5.5 (<5.0-8.0) Urine Specific [place] 1.020 (1.000-1.030) Urine Protein Negative mg/dL (NEG-TRACE) Urine Glucose (UA) 250 mg/dL (NEG) Urine Ketones (Stick) Negative mg/dL (NEG) Urine Blood Negative (NEG) Urine Nitrite Negative (NEG) Urine Bilirubin Negative (NEG) Urine Urobilinogen Dipstick 0.2 mg/dL (0.2 mg/dL) Urine Leukocyte Esterase Small (NEG) Urine RBC 6-10 /HPF (0-2) Urine WBC 1-4 /HPF (0-4) Urine Squamous Epithelial Cells Mod /LPF Urine Amorphous Sediment Present /HPF Urine Bacteria Few /HPF (0-FEW) Urine Hyaline Casts Moderate /HPF Urine Mucus Mod /LPF Lactic Acid Level 2.3 mmol/L (0.4-2.0) H Glucose (Fingerstick) 174 mg/dL (70-99) H 239 mg/dL (70-99) H Test 09/26/20 06:25 09/26/20 06:53 White Blood Count 8.3 x10^3/uL (4.0-11.0) Red Blood Count 4.29 x10^6/uL (3.50-5.40) Hemoglobin 12.0 g/dL (12.0-15.5) Hematocrit 35.9 % (36.0-47.0) L Mean Corpuscular Volume 84 fL (79-100) Mean Corpuscular Hemoglobin 28 pg (25-35) Mean Corpuscular Hemoglobin Concent 34 g/dL (31-37) Red Cell Distribution Width 17.9 % (11.5-14.5) H Platelet Count 193 x10^3/uL (140-400) Neutrophils (%) (Auto) 64 % (31-73) Lymphocytes (%) (Auto) 20 % (24-48) L Monocytes (%) (Auto) 9 % (0-9) Eosinophils (%) (Auto) 7 % (0-3) H Basophils (%) (Auto) 1 % (0-3) Neutrophils # (Auto) 5.3 x10^3/uL (1.8-7.7) Lymphocytes # (Auto) 1.7 x10^3/uL (1.0-4.8) Monocytes # (Auto) 0.7 x10^3/uL (0.0-1.1) Eosinophils # (Auto) 0.6 x10^3/uL (0.0-0.7) Basophils # (Auto) 0.1 x10^3/uL (0.0-0.2) Sodium Level 136 mmol/L (136-145) Potassium Level 4.8 mmol/L (3.5-5.1) Chloride Level 105 mmol/L (98-107) Carbon Dioxide Level 25 mmol/L (21-32) Anion Gap 6 (6-14) Blood Urea Nitrogen 25 mg/dL (7-20) H Creatinine 1.3 mg/dL (0.6-1.0) H Estimated GFR (Cockcroft-Gault) 38.7 BUN/Creatinine Ratio 19 (6-20) Glucose Level 163 mg/dL (70-99) H Calcium Level 8.6 mg/dL (8.5-10.1) Total Bilirubin 0.6 mg/dL (0.2-1.0) Aspartate Amino Transferase (AST) 30 U/L (15-37) Alanine Aminotransferase (ALT) 29 U/L (14-59) Alkaline Phosphatase 92 U/L (46-116) Total Protein 6.4 g/dL (6.4-8.2) Albumin 2.5 g/dL (3.4-5.0) L Albumin/Globulin Ratio 0.6 (1.0-1.7) L Glucose (Fingerstick) 161 mg/dL (70-99) H Laboratory Tests 09/26/20 06:25 Laboratory Tests 09/26/20 06:25 ASSESSMENT/PLAN ASSESSMENT/PLAN 1. Mechanical fall with left proximal humerus fracture; as per ortho 2. Mild acute on chronic diastolic CHF; echo with preserved LV systolic function 3. AFIB; paroxysmal versus chronic. Presently AFIB with controlled rate. Is on Eliquis for stroke prophylaxis[facility] 4. Hypertension; controlled 5. Hyperlipidemia; statin 6. Diabetes, II 7. GALI; improved 8. H/o CVA Recommendations Mild diuresis Continue Cardizem for rate control Eliquis for stroke prophylaxis. If further falls, would recommend discontinuing OAC and using ASA therapy. D/w daughter. Will defer to primary orthodontic assistant. Secondary prevention Follow up with Dr. Ambriz upon discharge. VINAY JORDAN MD 09/26/20 [id number]: CARDIAC CONSULT ASSESSMENT/PLAN ASSESSMENT/PLAN Patient seen and examined I agree with our nurse practitioners assessment and plan. Mechanical fall with left proximal humerus fracture; repair and followed by Ortho. Mild acute on chronic diastolic CHF; echo with preserved LV systolic function. Mild diuresis with monitoring of lab. AFIB; paroxysmal versus chronic. Presently AFIB with controlled rate. Is on Eliquis for stroke prophylaxis. Follows with [facility], Dr. Ambriz. We will continue present medications including anticoagulation at this time. Hypertension; controlled Hyperlipidemia; statin Diabetes, II GALI; improved. Monitoring lab. H/o CVA NIESHA SPENCE APRN Sep 26, 2020 11:17 VINAY JORDAN MD Sep 26, 2020 16:14
[2020-09-26] MEDS ORDERED: ANTI-COAG MONITOR BY PHARMACY. MC PRN (11:30)
--- NOTE | 2020-09-26 13:50 | RAD ---
EXAM: CHEST ONE VIEW. HISTORY: Pneumonia. COMPARISON: 09/24/2020. FINDINGS: A frontal view of the chest is obtained. The inspiration is small. There are mild bilateral patchy airspace infiltrates. There is no pneumotho rax or pleural effusion. The heart is not enlarged. There are atherosclerotic calcifications of the a obey. IMPRESSION: 1. Mild bilateral airspace infiltrates are consistent with atypical pneumonia. Electronically signed by: Marcelina Kimbrough MD (09/26/2020 1:48 PM) [id number]
--- NOTE | 2020-09-26 13:52 | NUR ---
SW following. Discussed with RN, pt from home with daughter, room air, regular diet. Therapy recommending SNF. SW met with pt and pt's daughter at bedside - they are agreeable and would like referral sent to [facility] as pt has been there in the past. SW phoned and faxed referral, pt accepted at [facility] pending insurance auth and negative COVID test. SW will continue to follow.
[2020-09-26] MEDS ORDERED: FUROSEMIDE 20 MG/2 ML VIAL. IVP ONE (14:30)
[2020-09-26 15:00] VITALS: BP 111/49
[2020-09-26] MEDS ORDERED: AMOX1TAB58 PO (15:19)
--- NOTE | 2020-09-26 16:09 | PDOC ---
[employer] PROGRESS NOTE Date of Service DOS: DATE: 09/26/20 TIME: 16:04 Chief Complaint Chief Complaint Assessment/Plan IMPRESSION: Left humeral fracture // acute minimally displaced fracture through the proximal humeral metaphysis without significant appreciable angulation. Moderate degenerative changes are noted. MORBID OBESITY Left lung c/w suggestion of left basilar atelectasis and or infiltrates. Fall LACTIC ACIDOSIS POSSIBLE early sepsis Acute hypoxic resp failure diabetes, dyslipidemia, hypertension on Losartan and Bumex CHF Mild reactive leukocytosis. Eliquis for AFib. CKD? no old labs for review at admit small subcapital linear lucency along the medial aspect of the left femoral neck which could be secondary to an overhanging osteophyte, though a nondisplaced acute fracture cannot be excluded plan ortho consult iv zosyn, zithromax, taper soon if possible BLOOD CULTURES, urine culture Consult cardiology Eliquis for AFib. consult pulmonary o2 support Monitor renal function. bedrest home meds procalcitonin pending trend lactic acid PT/OT DNR CODE STATUS AM CBC, BMP. UA, URINE CULTURE cxr pa/ lat in am D/W DAUGHTER D/W RN In addition to my E/M visit, advance care planning done with A total time of 20 minutes was spent from 1140 to 12:00 face to face in discussion with the patient and family regarding their goals of care, CODE STATUS. History of Present Illness History of Present Illness 85-year-old female with a history of diabetes, blood thinner use (Eliquis 5 mg), hypertension, hyperlipidemia presents to the emergency room complaining of left shoulder pain after she fell while reaching for remote. reports falling directly on the left shoulder, she is unsure whether she hit her head or not./ unsure if she had loss of consciousness or not. She was given fentanyl 100 mcg in route which she says is helping her pain // denies chest pain, abdominal pain, pelvis pain, head pain, neck pain, back pain, vomiting, diarrhea, has had a mild cough Left proximal humerus fracture is noted. x ray small subcapital linear lucency along the medial aspect of the left femoral neck which could be secondary to an overhanging osteophyte, though a nondisplaced acute fracture cannot be excluded LACTIC ACIDOSIS noted, will trend // Acute hypoxic resp failure hx diabetes, dyslipidemia, hypertension, hx CHF on Eliquis for AFib. cr 1.6 CKD? no old labs for review at admit /small subcapital linear lucency along the medial aspect of the left femoral neck which could be secondary to an overhanging osteophyte, though a nondisplaced acute fracture cannot be excluded plan == ortho consult / iv zosyn, zithromax BLOOD CULTURES / echo Consult cardiology cont Eliquis for AFib. consult pulmonary /o2 support / Monitor renal function. bedrest procalcitonin pending HTN- on Losartan and Bumex 09/26/2020 No acute events overnight. Patient's pain is well controlled. Echo completed today showing diastolic heart failure with preserved elect junction fraction. We will continue to mild diuresis. Continue with PT OT. Continue with empiric IV antibiotics and transition to p.o. Augmentin before discharge to longterm facility. Patient's chart, labs, images were reviewed and discussed with RN Vitals/I&O Vitals/I&O: Vital Signs Date Time Temp Pulse Resp B/P (MAP) Pulse Ox O2 Delivery O2 Flow Rate FiO2 09/26/20 15:00 98.1 72 20 111/49 (69) 92 Nasal Cannula 2.0 98.1 I & O 09/25/20 09/25/20 09/26/20 15:00 23:00 07:00 Intake Total 50 ml Output Total 400 ml Balance -350 ml Physical Exam General: Alert, Oriented X3, Cooperative, No acute distress Heart: Other (AFIB, rate controlled ) Lungs: Clear Abdomen: Soft Extremities: No edema, Normal pulses, Other (left arm immobilizer ) Skin: No significant lesion Labs Labs: Laboratory Tests Test 09/25/20 17:00 09/25/20 20:26 09/26/20 06:25 09/26/20 06:53 Glucose (Fingerstick) 174 mg/dL (70-99) 239 mg/dL (70-99) 161 mg/dL (70-99) White Blood Count 8.3 x10^3/uL (4.0-11.0) Red Blood Count 4.29 x10^6/uL (3.50-5.40) Hemoglobin 12.0 g/dL (12.0-15.5) Hematocrit 35.9 % (36.0-47.0) Mean Corpuscular Volume 84 fL (79-100) Mean Corpuscular Hemoglobin 28 pg (25-35) Mean Corpuscular Hemoglobin Concent 34 g/dL (31-37) Red Cell Distribution Width 17.9 % (11.5-14.5) Platelet Count 193 x10^3/uL (140-400) Neutrophils (%) (Auto) 64 % (31-73) Lymphocytes (%) (Auto) 20 % (24-48) Monocytes (%) (Auto) 9 % (0-9) Eosinophils (%) (Auto) 7 % (0-3) Basophils (%) (Auto) 1 % (0-3) Neutrophils # (Auto) 5.3 x10^3/uL (1.8-7.7) Lymphocytes # (Auto) 1.7 x10^3/uL (1.0-4.8) Monocytes # (Auto) 0.7 x10^3/uL (0.0-1.1) Eosinophils # (Auto) 0.6 x10^3/uL (0.0-0.7) Basophils # (Auto) 0.1 x10^3/uL (0.0-0.2) Sodium Level 136 mmol/L (136-145) Potassium Level 4.8 mmol/L (3.5-5.1) Chloride Level 105 mmol/L (98-107) Carbon Dioxide Level 25 mmol/L (21-32) Anion Gap 6 (6-14) Blood Urea Nitrogen 25 mg/dL (7-20) Creatinine 1.3 mg/dL (0.6-1.0) Estimated GFR (Cockcroft-Gault) 38.7 BUN/Creatinine Ratio 19 (6-20) Glucose Level 163 mg/dL (70-99) Calcium Level 8.6 mg/dL (8.5-10.1) Total Bilirubin 0.6 mg/dL (0.2-1.0) Aspartate Amino Transf (AST/SGOT) 30 U/L (15-37) Alanine Aminotransferase (ALT/SGPT) 29 U/L (14-59) Alkaline Phosphatase 92 U/L (46-116) DY-Lge-Q-Type Natriuretic Peptide 1975 pg/mL (0-449) Total Protein 6.4 g/dL (6.4-8.2) Albumin 2.5 g/dL (3.4-5.0) Albumin/Globulin Ratio 0.6 (1.0-1.7) Test 09/26/20 12:04 Glucose (Fingerstick) 190 mg/dL (70-99) Comment Review of Relevant I have reviewed the following items rudy (where applicable) has been applied. Medications: Current Medications Medications (Trade) Dose Ordered Sig/Marii Route PRN Reason Start Time Stop Time Status Last Admin Dose Admin Insulin Glargine (Lantus Syringe) 18 unit QHS SQ 09/25/20 21:00 09/25/20 21:20 Pantoprazole Sodium (Protonix) 40 mg QODAY@0730 PO 09/26/20 07:30 09/26/20 09:24 Lactobacillus Rhamnosus (Culturelle) 1 cap BID PO 09/25/20 21:00 09/26/20 09:24 Insulin Human Lispro (HumaLOG) 0-5 UNITS TIDWMEALS SQ 09/26/20 08:00 09/26/20 12:26 Info (Anti-Coagulation Monitoring By Pharmacy) 1 each PRN DAILY PRN MC PER PROTOCOL 09/26/20 11:30 09/26/20 11:31 Furosemide (Lasix) 20 mg 1X ONCE IVP 09/26/20 14:30 09/26/20 14:31 DC 09/26/20 14:56 Justifications for Admission Other Justification FALL, HYPOXIA. SEPSIS KIM GRAY MD Sep 26, 2020 16:09
[2020-09-26 19:59] VITALS: BP 130/73
[2020-09-26] MEDS: ATORVASTATIN CALCIUM 20 MG TABLET PO SCH (20:39)
[2020-09-26] MEDS: INSULIN GLARGINE SYRINGE. SQ SCH (20:44)
[2020-09-26 23:33] VITALS: BP 138/87
[2020-09-27 03:45] VITALS: BP 117/72
[2020-09-27] MEDS: IV NORMAL SALINE 1000ML BAG 1,000 ML IV SCH (04:25)
[2020-09-27] MEDS: HYDROcodone/APAP 5/325MG 1 TAB TABLET PO PRN ×2 (04:26→10:31)
[2020-09-27] MEDS: PIPERACILLIN/TAZOBACTAM 2.25 GM in IV NORMAL SALINE 50ML 50 ML IV SCH ×2 (05:51→12:10)
[2020-09-27 07:00] VITALS: BP 129/74
[2020-09-27] MEDS: INSULIN LISPRO 300 UNITS/3 ML VIAL. SQ SCH ×2 (08:00→12:14)
[2020-09-27 08:13] LABS: CALCIUM 8.8 mg/dL (8.5-10.1); CREATININE 1.3 mg/dL (0.6-1.0); GFR 38.7; POTASSIUM 4.2 mmol/L (3.5-5.1)
[2020-09-27] MEDS: LOSARTAN POTASSIUM 25 MG TABLET. PO SCH (09:01)
[2020-09-27] MEDS: BUMETANIDE 1 MG TABLET. PO SCH (09:01)
[2020-09-27] MEDS: glipiZIDE ER 2.5 MG TAB.ER.24 PO SCH (09:01)
[2020-09-27] MEDS: APIXABAN 5 MG TABLET. PO SCH (09:02)
[2020-09-27] MEDS: LACTOBACILLUS RHAMNOSUS GG 1 CAPSULE. PO SCH (09:02)
--- NOTE | 2020-09-27 09:04 | SNU/HH DC ---
DISCHARGE ORDERS DISCHARGE INFORMATION: DISCHARGE DATE: Sep 27, 2020 CONDITION ON DISCHARGE: Stable CODE STATUS: Code Status: DNR/DNI ASSISTED: SNF STAY <30 DAYS: Yes POST DISCHARGE ORDERS: ACTIVITY ORDERS: Avoid exertion WOUND/INCISION CARE: Ice to area for comfort FOLLOW-UP: PHYSICIAN FOLLOW-UP: PCP within 2 weeks of discharge ADDITIONAL FOLLOW-UP: Dr. Valentin leblanc supervisor prop making within 2 months of discharge TREATMENT/EQUIPMENT ORDERS: Physical Therapy For: Evalulation/Treatment Occupational Therapy For: Evaluation/Treatment DISCHARGE MEDICATIONS: Home Meds Active Scripts Amoxicillin/Potassium Clav (AUGMENTIN 500-125 TABLET) 1 Each Tablet, 1 TAB PO BID for pneumonia for 5 Days, #10 TAB 0 Refills Prov:KIM GRAY MD 09/26/20 Reported Medications Hydrocodone Bit/Acetaminophen (HYDROCODONE-APAP 5-325 ) 1 Tab Tablet, 1 TAB PO PRN Q6HRS PRN for PAIN 09/25/20 Bumetanide (BUMETANIDE) 0.5 Mg Tablet, 0.5 MG PO BID for diuretic, TAB 09/25/20 Omeprazole (OMEPRAZOLE) 20 Mg Capsule.dr, 20 MG PO QODAY for antacid, CAP 09/25/20 Insulin Detemir (Levemir Flextouch) 100 Unit/1 Ml Insuln.pen, 18 UNITS SQ HS for diabetes, SYR 09/25/20 Losartan Potassium (COZAAR ) 25 Mg Tablet, 25 MG PO DAILY for HYPERTENSION, TAB 09/25/20 Diltiazem Hcl (CARTIA XT) 180 Mg Cap.er.24h, 360 MG PO DAILY for heart, CAP.SR 09/25/20 Glipizide (GLIPIZIDE ER) 5 Mg Tab.er.24, 5 MG PO BIDAC for antidiabetic, TAB.SR 09/25/20 Apixaban (ELIQUIS) 5 Mg Tablet, 5 MG PO BID for anticoagulant, TAB 09/25/20 Atorvastatin Calcium (ATORVASTATIN CALCIUM) 20 Mg Tablet, 20 MG PO DAILY for FOR CHOLESTEROL, #30 TAB 0 Refills 09/25/20 Metformin Hcl (METFORMIN HCL) 500 Mg Tablet, 500 MG PO BIDWMEALS for ANTI- DIABETIC, TAB 0 Refills 09/25/20 KIM GRAY MD Sep 27, 2020 09:04
--- NOTE | 2020-09-27 10:20 | PDOC ---
PULMONARY PROGRESS NOTES DATE: 09/27/20 TIME: 10:20 Subjective no soa mild cough Vitals Vital Signs Date Time Temp Pulse Resp B/P (MAP) Pulse Ox O2 Delivery O2 Flow Rate FiO2 09/27/20 09:02 75 129/74 09/27/20 07:00 97.8 16 95 Nasal Cannula 2.0 97.8 General: Alert, No acute distress Lungs: Clear Cardiovascular: S1 Abdomen: Soft Neuro Exam: Alert Extremities: No Edema Skin: Warm Labs Laboratory Tests Test 09/25/20 12:31 09/25/20 13:45 09/25/20 17:00 09/25/20 20:26 Urine Collection Type Unknown Urine Color Yellow Urine Clarity Clear Urine pH 5.5 (<5.0-8.0) Urine Specific [place] 1.020 (1.000-1.030) Urine Protein Negative mg/dL (NEG-TRACE) Urine Glucose (UA) 250 mg/dL (NEG) Urine Ketones (Stick) Negative mg/dL (NEG) Urine Blood Negative (NEG) Urine Nitrite Negative (NEG) Urine Bilirubin Negative (NEG) Urine Urobilinogen Dipstick 0.2 mg/dL (0.2 mg/dL) Urine Leukocyte Esterase Small (NEG) Urine RBC 6-10 /HPF (0-2) Urine WBC 1-4 /HPF (0-4) Urine Squamous Epithelial Cells Mod /LPF Urine Amorphous Sediment Present /HPF Urine Bacteria Few /HPF (0-FEW) Urine Hyaline Casts Moderate /HPF Urine Mucus Mod /LPF Lactic Acid Level 2.3 mmol/L (0.4-2.0) Glucose (Fingerstick) 174 mg/dL (70-99) 239 mg/dL (70-99) Test 09/26/20 06:25 09/26/20 06:53 09/26/20 12:04 09/26/20 16:00 White Blood Count 8.3 x10^3/uL (4.0-11.0) Red Blood Count 4.29 x10^6/uL (3.50-5.40) Hemoglobin 12.0 g/dL (12.0-15.5) Hematocrit 35.9 % (36.0-47.0) Mean Corpuscular Volume 84 fL (79-100) Mean Corpuscular Hemoglobin 28 pg (25-35) Mean Corpuscular Hemoglobin Concent 34 g/dL (31-37) Red Cell Distribution Width 17.9 % (11.5-14.5) Platelet Count 193 x10^3/uL (140-400) Neutrophils (%) (Auto) 64 % (31-73) Lymphocytes (%) (Auto) 20 % (24-48) Monocytes (%) (Auto) 9 % (0-9) Eosinophils (%) (Auto) 7 % (0-3) Basophils (%) (Auto) 1 % (0-3) Neutrophils # (Auto) 5.3 x10^3/uL (1.8-7.7) Lymphocytes # (Auto) 1.7 x10^3/uL (1.0-4.8) Monocytes # (Auto) 0.7 x10^3/uL (0.0-1.1) Eosinophils # (Auto) 0.6 x10^3/uL (0.0-0.7) Basophils # (Auto) 0.1 x10^3/uL (0.0-0.2) Sodium Level 136 mmol/L (136-145) Potassium Level 4.8 mmol/L (3.5-5.1) Chloride Level 105 mmol/L (98-107) Carbon Dioxide Level 25 mmol/L (21-32) Anion Gap 6 (6-14) Blood Urea Nitrogen 25 mg/dL (7-20) Creatinine 1.3 mg/dL (0.6-1.0) Estimated GFR (Cockcroft-Gault) 38.7 BUN/Creatinine Ratio 19 (6-20) Glucose Level 163 mg/dL (70-99) Calcium Level 8.6 mg/dL (8.5-10.1) Total Bilirubin 0.6 mg/dL (0.2-1.0) Aspartate Amino Transf (AST/SGOT) 30 U/L (15-37) Alanine Aminotransferase (ALT/SGPT) 29 U/L (14-59) Alkaline Phosphatase 92 U/L (46-116) VW-Eaw-I-Type Natriuretic Peptide 1975 pg/mL (0-449) Total Protein 6.4 g/dL (6.4-8.2) Albumin 2.5 g/dL (3.4-5.0) Albumin/Globulin Ratio 0.6 (1.0-1.7) Glucose (Fingerstick) 161 mg/dL (70-99) 190 mg/dL (70-99) SARS-CoV-2 Antigen (Rapid) Negative (NEGATIVE) Test 09/26/20 16:24 09/26/20 20:38 09/27/20 07:10 09/27/20 08:29 Glucose (Fingerstick) 189 mg/dL (70-99) 202 mg/dL (70-99) 118 mg/dL (70-99) Sodium Level 138 mmol/L (136-145) Potassium Level 4.2 mmol/L (3.5-5.1) Chloride Level 104 mmol/L (98-107) Carbon Dioxide Level 26 mmol/L (21-32) Anion Gap 8 (6-14) Blood Urea Nitrogen 23 mg/dL (7-20) Creatinine 1.3 mg/dL (0.6-1.0) Estimated GFR (Cockcroft-Gault) 38.7 Glucose Level 123 mg/dL (70-99) Calcium Level 8.8 mg/dL (8.5-10.1) Laboratory Tests Test 09/26/20 12:04 09/26/20 16:00 09/26/20 16:24 09/26/20 20:38 Glucose (Fingerstick) 190 mg/dL (70-99) 189 mg/dL (70-99) 202 mg/dL (70-99) SARS-CoV-2 Antigen (Rapid) Negative (NEGATIVE) Test 09/27/20 07:10 09/27/20 08:29 Sodium Level 138 mmol/L (136-145) Potassium Level 4.2 mmol/L (3.5-5.1) Chloride Level 104 mmol/L (98-107) Carbon Dioxide Level 26 mmol/L (21-32) Anion Gap 8 (6-14) Blood Urea Nitrogen 23 mg/dL (7-20) Creatinine 1.3 mg/dL (0.6-1.0) Estimated GFR (Cockcroft-Gault) 38.7 Glucose Level 123 mg/dL (70-99) Calcium Level 8.8 mg/dL (8.5-10.1) Glucose (Fingerstick) 118 mg/dL (70-99) Medications Active Scripts Medications Dose Route/Sig Max Daily Dose Days Date Category Hydrocodone-Apap 5-325 (Hydrocodone Bit/Acetaminophen) 1 Tab Tablet 1 Tab PO PRN Q6HRS PRN 09/25/20 Reported Bumetanide 0.5 Mg Tablet 0.5 Mg PO BID 09/25/20 Reported Omeprazole 20 Mg Capsule.dr 20 Mg PO QODAY 09/25/20 Reported Levemir Flextouch (Insulin Detemir) 100 Unit/1 Ml Insuln.pen 18 Units SQ HS 09/25/20 Reported Cozaar (Losartan Potassium) 25 Mg Tablet 25 Mg PO DAILY 09/25/20 Reported Cartia Xt (Diltiazem Hcl) 180 Mg Cap.er.24h 360 Mg PO DAILY 09/25/20 Reported Glipizide Er (Glipizide) 5 Mg Tab.er.24 5 Mg PO BIDAC 09/25/20 Reported Eliquis (Apixaban) 5 Mg Tablet 5 Mg PO BID 09/25/20 Reported Atorvastatin Calcium 20 Mg Tablet 20 Mg PO DAILY 09/25/20 Reported Metformin Hcl 500 Mg Tablet 500 Mg PO BIDWMEALS 09/25/20 Reported Impression . 1. Abnormal chest x-ray, likely left basilar atelectasis. She has no fever. The white cell count is probably reactive secondary to her fracture. At this time, she is currently already on Zosyn. She could be switched to oral Augmentin and could be discharged to skilled care. 2. Status post fall with left humeral fracture, nonsurgical versus surgery. 3. Mild reactive leukocytosis. 4. No significant tobacco history. 5. Mild acute kidney injury. Plan . 1. From a pulmonary standpoint, she could be discharged on oral Augmentin. 2. Wean her off oxygen. 3. Incentive spirometry. 4. Eliquis for AFib. 5. Monitor renal function. Improving with hydration. 6. Discussed with RN We will be available for any further recommendations. From a pulmonary standpoint, We will see her p.r.n. SHANTHI SHAH MD Sep 27, 2020 10:20
--- NOTE | 2020-09-27 10:23 | PDOC ---
Renal-Progress Notes Subjective Notes Notes NO NEW COMPLAINTS History of Present Illness Hx of present illness NO ACUTE CHANGES Vitals Vitals Vital Signs Date Time Temp Pulse Resp B/P (MAP) Pulse Ox O2 Delivery O2 Flow Rate FiO2 09/27/20 09:02 75 129/74 09/27/20 07:00 97.8 16 95 Nasal Cannula 2.0 97.8 Weight Weight [ ] I.O. Intake and Output Intake and Output 09/27/20 07:00 Intake Total 2120 ml Balance 2120 ml Intake Oral 720 ml IV Total 1400 ml # Voids 3 Labs Labs Laboratory Tests Test 09/26/20 12:04 09/26/20 16:00 09/26/20 16:24 09/26/20 20:38 Glucose (Fingerstick) 190 mg/dL (70-99) 189 mg/dL (70-99) 202 mg/dL (70-99) SARS-CoV-2 Antigen (Rapid) Negative (NEGATIVE) Test 09/27/20 07:10 09/27/20 08:29 Sodium Level 138 mmol/L (136-145) Potassium Level 4.2 mmol/L (3.5-5.1) Chloride Level 104 mmol/L (98-107) Carbon Dioxide Level 26 mmol/L (21-32) Anion Gap 8 (6-14) Blood Urea Nitrogen 23 mg/dL (7-20) Creatinine 1.3 mg/dL (0.6-1.0) Estimated GFR (Cockcroft-Gault) 38.7 Glucose Level 123 mg/dL (70-99) Calcium Level 8.8 mg/dL (8.5-10.1) Glucose (Fingerstick) 118 mg/dL (70-99) Micro Micro Microbiology 09/25/20 Blood Culture - Preliminary, Resulted NO GROWTH AFTER 2 DAYS Review of Systems Constitutional: yes: weakness, alert Ears/Nose/Throat: Yes: no symptom reported Eyes: Yes: no symptom reported Pulmonary: Yes no symptom reported Cardiovascular: Yes no symptom reported Gastrointestional: Yes: constipation Genitourinary: Yes: no symptom reported Musculoskeletal: Yes: no symptom reported Skin: Yes no symptom reported Psychiatric/Neurological: Yes: no symptom reported Endocrine: Yes: no symptom reported Physical Exam General Appearance: no apparent distress Skin: warm Respiratory: decreased breath sounds Heart: S1S2 Abdomen: soft Genitourinary: bladder flat Extremities: pulses present Neurology: alert Musculoskeletal: Osteoarthritis Assessment Assessment IMP DEHYDRATION GALI RESOLVING-CR DOWN TO 1.3-LYTES AND ACID BASE BALANCE STABLE L HUMERAL FX PLAN ENC PO HYDRATION MAY HAVE SOME UNDERLYING CKD WILL FOLLOW JOSE MARTIN LANDRY MD Sep 27, 2020 10:23
[2020-09-27] MEDS: AZITHROMYCIN 500 MG in IV NORMAL SALINE 250ML 250 ML IV SCH (10:32)
[2020-09-27 11:00] VITALS: BP 96/55
--- NOTE | 2020-09-27 11:11 | NUR ---
[facility] following. Discussed with RN, insurance approved SNF. COVID-19 negative. [facility] faxed COVID result and discharge orders to [facility]. Transportation arranged for 1300 by Ren[facility]. RN notified.
--- NOTE | 2020-09-27 13:25 | NUR ---
Discharge Note: LORENA DELUNA [address] [place] [address] Discharge instructions and discharge home medications reviewed with KAIT Anders at [facility] and a copy given. All questions have been answered and understanding verbalized. The following instructions and handouts were given: f/u with Dr. Nelson for x-rays of left arm. Discontinued lines and drains: Peripheral IV intact. [facility] with [facility] via Wheel[facility].
--- NOTE | 2020-10-01 16:49 | PDOC3 ---
[facility]-Discharge Summary Date of Admission: Date of Admission: Sep 25, 2020 Date of Discharge: Date of Discharge: Sep 27, 2020 Discharge Diagnosis: Discharge Diagnosis: Left humeral fracture // acute minimally displaced fracture through the proximal humeral metaphysis without significant appreciable angulation. Moderate degenerative changes are noted. MORBID OBESITY Left lung c/w suggestion of left basilar atelectasis and or infiltrates. Fall LACTIC ACIDOSIS POSSIBLE early sepsis Acute hypoxic resp failure diabetes, dyslipidemia, hypertension on Losartan and Bumex CHF Mild reactive leukocytosis. Eliquis for AFib. CKD? no old labs for review at admit small subcapital linear lucency along the medial aspect of the left femoral neck which could be secondary to an overhanging osteophyte, though a nondisplaced acute fracture cannot be excluded Hospital Course: Hospital Course: 85-year-old female with a history of diabetes, blood thinner use (Eliquis 5 mg), hypertension, hyperlipidemia presents to the emergency room complaining of left shoulder pain after she fell while reaching for remote. reports falling d irectly on the left shoulder, she is unsure whether she hit her head or not./ unsure if she had loss of consciousness or not. She was given fentanyl 100 mcg in route which she says is helping her pain // denies chest pain, abdominal pain, pelvis pain, head pain, neck pain, back pain, vomiting, diarrhea, has had a mild cough Left proximal humerus fracture is noted. x ray small subcapital linear lucency along the medial aspect of the left femoral neck which could be secondary to an overhanging osteophyte, though a nondisplaced acute fracture cannot be excluded LACTIC ACIDOSIS noted, will trend // Acute hypoxic resp failure hx diabetes, dyslipidemia, hypertension, hx CHF on Eliquis for AFib. cr 1.6 CKD? no old labs for review at admit /small subcapital linear lucency along the medial aspect of the left femoral neck which could be secondary to an overhanging osteophyte, though a nondisplaced acute fracture cannot be excluded plan == ortho consult / iv zosyn, zithromax BLOOD CULTURES / echo Consult card iology cont Eliquis for AFib. consult pulmonary /o2 support / Monitor renal function. bedrest procalcitonin pending HTN- on Losartan and Bumex 09/26/2020 No acute events overnight. Patient's pain is well controlled. Echo completed today showing diastolic heart failure with preserved elect junction fraction. We will continue to mild diuresis. Continue with PT OT. Continue with empiric IV antibiotics and transition to p.o. Augmentin before [facility]. Patient's chart, labs, images were reviewed and discussed with RN By day of discharge, pt was clinically stable and ready for discharge. Rest of hospital course was uneventful Disposition: Disposition/Orders: D/C to Another Facility Activity: Activity: Resume previous activity Diet: Diet: Cardiac Medications: Home Meds Active Scripts Amoxicillin/Potassium Clav (AUGMENTIN 500-125 TABLET) 1 Each Tablet, 1 TAB PO BID for pneumonia for 5 Days, #10 TAB 0 Refills Prov:KIM GRAY MD 09/26/20 Reported Medications Hydrocodone Bit/Acetaminophen (HYDROCODONE-APAP 5-325 ) 1 Tab Tablet, 1 TAB PO PRN Q6HRS PRN for PAIN 09/25/20 Bumetanide (BUMETANIDE) 0.5 Mg Tablet, 0.5 MG PO BID for diuretic, TAB 09/25/20 Omeprazole (OMEPRAZOLE) 20 Mg Capsule.dr, 20 MG PO QODAY for antacid, CAP 09/25/20 Insulin Detemir (Levemir Flextouch) 100 Unit/1 Ml Insuln.pen, 18 UNITS SQ HS for diabetes, SYR 09/25/20 Losartan Potassium (COZAAR ) 25 Mg Tablet, 25 MG PO DAILY for HYPERTENSION, TAB 09/25/20 Diltiazem Hcl (CARTIA XT) 180 Mg Cap.er.24h, 360 MG PO DAILY for heart, CAP.SR 09/25/20 Glipizide (GLIPIZIDE ER) 5 Mg Tab.er.24, 5 MG PO BIDAC for antidiabetic, TAB.SR 09/25/20 Apixaban (ELIQUIS) 5 Mg Tablet, 5 MG PO BID for anticoagulant, TAB 09/25/20 Atorvastatin Calcium (ATORVASTATIN CALCIUM) 20 Mg Tablet, 20 MG PO DAILY for FOR CHOLESTEROL, #30 TAB 0 Refills 09/25/20 Metformin Hcl (METFORMIN HCL) 500 Mg Tablet, 500 MG PO BIDWMEALS for ANTI- DIABETIC, TAB 0 Refills 09/25/20 Scheduled Amoxicillin/Potassium Clav (Augmentin 500-125 Tablet), 1 TAB PO BID Apixaban (Eliquis), 5 MG PO BID, (Reported) Atorvastatin Calcium (Atorvastatin Calcium), 20 MG PO DAILY, (Reported) Bumetanide (Bumetanide), 0.5 MG PO BID, (Reported) Diltiazem Hcl (Cartia Xt), 360 MG PO DAILY, (Reported) Glipizide (Glipizide Er), 5 MG PO BIDAC, (Reported) Insulin Detemir (Levemir Flextouch), 18 UNITS SQ HS, (Reported) Losartan Potassium (Cozaar ), 25 MG PO DAILY, (Reported) Metformin Hcl (Metformin Hcl), 500 MG PO BIDWMEALS, (Reported) Omeprazole (Omeprazole), 20 MG PO QODAY, (Reported) Scheduled PRN Hydrocodone Bit/Acetaminophen (Hydrocodone-Apap 5-325 ), 1 TAB PO PRN Q6HRS PRN for PAIN, (Reported) Total Time: Total Time: Total time spent was 33 minutes in preparing scripts, discharge planning with SW and RN, and preparing this discharge summary. Justicifation of Admission Dx: Justifications for Admission: Justification of Admission Dx: Yes Fracture: Fracture KIM GRAY MD Oct 01, 2020 16:49
== END 2020-09-27 13:25 ==
LOC: ER 22:22 → 4 NORTH 09-25 01:52 → 5 SOUTH 09-25 18:59 → INTOOBSV 09-25 23:36 → OBSVTOIN 09-25 23:36
PROVIDERS: ADMIT Family Medicine; ATTEND Family Medicine
DX: S42.202A Unspecified fracture of upper end of left humerus, initial encounter for closed fracture (principal); J96.01 Acute respiratory failure with hypoxia; D72.828 Other elevated white blood cell count; E11.9 Type 2 diabetes mellitus without complications; E66.01 Morbid (severe) obesity due to excess calories; E78.00 Pure hypercholesterolemia, unspecified; E78.5 Hyperlipidemia, unspecified; E86.0 Dehydration; E87.2 Acidosis; Z20.822 Contact with and (suspected) exposure to COVID-19; I11.0 Hypertensive heart disease with heart failure; I50.33 Acute on chronic diastolic (congestive) heart failure; I48.0 Paroxysmal atrial fibrillation; J98.11 Atelectasis; N17.9 Acute kidney failure, unspecified; M47.9 Spondylosis, unspecified; M85.80 Other specified disorders of bone density and structure, unspecified site; Z79.899 Other long term (current) drug therapy; Z66 Do not resuscitate; Z79.01 Long term (current) use of anticoagulants; Z86.73 Personal history of transient ischemic attack (TIA), and cerebral infarction without residual deficits; W18.30XA Fall on same level, unspecified, initial encounter; Y92.89 Other specified places as the place of occurrence of the external cause; Y93.89 Activity, other specified; Y99.8 Other external cause status
CPT/HCPCS: 36415; 70450; 71045; 72125; 72170; 73030; 80048; 80053; 81001; 82550; 82962; 83605; 83880; 84145; 84484; 85007; 85025; 85610; 85730; 86850; 86900; 86901; 87040; 87426; 93005; 93306; 96361; 96365; 96366; 96367; 96375; 96376; 97116; 97162; 97166; 97530; 99285; G0378; J0456; J1815; J1940; J2270; J2543; J7030; J7050; G0379